=== PATIENT | female | born 1995 | race American Indian/Alaskan Native ===

== ENCOUNTER 2017-08-31 01:32 | Emergency (ER) | payer SELFPAY ==
[2017-08-31] MEDS ORDERED: ATIVAN IV ONE (01:57)
[2017-08-31 02:20] LABS: Hematocrit 32.9 % (30.3-42.9); Mean Corpuscular HGB Conc 31 % (30-34); Platelet Count 313 K/mm3 (140-440); Red Blood Count 4.89 M/mm3 (3.65-5.03); Red Cell Distribution Width 19.3 % (13.2-15.2)
[2017-08-31 02:30] LABS: Mean Corpuscular Hemoglobin 21 pg (28-32); Mean Corpuscular Volume 67 fl (79-97)
[2017-08-31] MEDS ORDERED: NACL 0.9% 1000 ML 1,000 ML ONE (02:36)
[2017-08-31 02:37] LABS: BUN/Creatinine Ratio 14; Blood Urea Nitrogen 7 mg/dL (7-17); Calcium 8.6 mg/dL (8.4-10.2); Hemolysis Index 1
[2017-08-31] MEDS ORDERED: KEPPRA 1,000 MG/NS 0.75% 100ML 1,000 MG/100 ML BAG IV ONE (03:24)
[2017-08-31] MEDS ORDERED: ATIVAN ONE (04:18)
--- NOTE | 2017-08-31 05:11 | Emergency Department Report ---
HPI - General Chief Complaint: Seizure Time Seen by Provider: 08/31/17 03:05 - HPI HPI: 22-year-old -[place] female with history of seizures had a seizure today prior to arrival. Boyfriend and josette seizure lasts 1-2 minutes. Patient was given medication on technical system analyst in the ambulance which stop her seizures. Patient denies any fever, neck pain, nausea, vomiting. She isn't currently not taking any medications for seizures. Does not have a primary care doctor. ED Past Medical Hx - Past Medical History Hx Hypertension: No Hx Congestive Heart Failure: No Hx Diabetes: No Hx Deep Vein Thrombosis: No Hx Renal Disease: No Hx Sickle Cell Disease: No Hx Seizures: No Hx Asthma: No Hx COPD: No Hx HIV: No Additional medical history: Vaginal delivery x 1, panic attack - Surgical History Additional Surgical History: 08-20-2014 - Social History Smoking Status: Never Smoker Substance Use Type: None - Medications Home Medications: Home Medications Medication Instructions Recorded Confirmed Last Taken Type Ferrous Sulfate [Feosol 325 MG tab] 325 mg PO BID #60 tablet 04/22/15 03/23/16 03/22/16 Rx Vit-Fe Fumar-FA [ 1 tab PO QDAY 03/23/16 03/23/16 03/22/16 History Vitamin] Valacyclovir HCl [Valtrex] 1,000 mg PO QDAY 03/23/16 03/23/16 03/22/16 History Valacyclovir HCl [valACYclovir] 1 tab PO QDAY 03/23/16 03/23/16 03/22/16 History levETIRAcetam [Keppra TAB] 250 mg PO BID #60 tablet 08/31/17 Unknown Rx ED Review of Systems ROS: Stated complaint: SEIZURE Other details as noted in HPI Comment: All other systems reviewed and negative Gastrointestinal: denies: nausea, vomiting Genitourinary: denies: urgency, dysuria Neurological: other (seizure) Physical Exam - Physical Exam Vital Signs: Vital Signs 08/31/17 08/31/17 08/31/17 01:39 01:40 01:41 Temperature Pulse Rate 103 H 102 H 100 H Respiratory 12 14 15 Rate Blood Pressure 102/55 102/55 O2 Sat by Pulse 100 100 100 Oximetry 08/31/17 08/31/17 08/31/17 01:43 01:45 01:46 Temperature 98.3 F Pulse Rate 98 H 95 H 95 H Respiratory 16 18 20 Rate Blood Pressure 102/55 102/55 103/55 O2 Sat by Pulse 100 100 98 Oximetry 08/31/17 08/31/17 08/31/17 01:47 01:49 01:51 Temperature Pulse Rate 97 H 99 H 91 H Respiratory 17 19 15 Rate Blood Pressure 102/55 102/55 102/55 O2 Sat by Pulse 100 100 100 Oximetry 08/31/17 08/31/17 08/31/17 02:18 02:55 02:57 Temperature Pulse Rate 102 H 84 Respiratory 20 11 L 12 Rate Blood Pressure 80/40 80/40 O2 Sat by Pulse 98 100 100 Oximetry 08/31/17 08/31/17 08/31/17 02:59 03:00 03:01 Temperature Pulse Rate 94 H 86 89 Respiratory 13 15 14 Rate Blood Pressure 80/40 95/58 95/58 O2 Sat by Pulse 100 100 100 Oximetry 08/31/17 08/31/17 08/31/17 03:03 03:05 03:07 Temperature Pulse Rate 96 H 103 H 99 H Respiratory 12 8 L 19 Rate Blood Pressure 95/58 95/58 95/58 O2 Sat by Pulse 100 100 100 Oximetry 08/31/17 08/31/17 08/31/17 03:09 03:11 03:13 Temperature Pulse Rate 100 H 89 90 Respiratory 13 14 13 Rate Blood Pressure 95/58 95/58 95/58 O2 Sat by Pulse 100 100 100 Oximetry 08/31/17 08/31/17 08/31/17 03:15 03:17 03:19 Temperature Pulse Rate 91 H 93 H 98 H Respiratory 13 13 12 Rate Blood Pressure 95/58 95/58 95/58 O2 Sat by Pulse 100 100 100 Oximetry 08/31/17 08/31/17 08/31/17 03:20 03:21 03:23 Temperature Pulse Rate 95 H 93 H 90 Respiratory 14 11 L 13 Rate Blood Pressure 98/58 98/58 98/58 O2 Sat by Pulse 100 100 100 Oximetry 08/31/17 08/31/17 08/31/17 03:25 03:27 03:29 Temperature Pulse Rate 88 83 85 Respiratory 14 15 14 Rate Blood Pressure 98/58 98/58 98/58 O2 Sat by Pulse 100 100 100 Oximetry 04/0708/31/17 08/31/17 03:31 03:33 03:35 Temperature Pulse Rate 90 86 86 Respiratory 14 13 14 Rate Blood Pressure 98/58 98/58 98/58 O2 Sat by Pulse 100 100 100 Oximetry 08/31/17 08/31/17 08/31/17 03:37 03:39 03:40 Temperature Pulse Rate 88 87 86 Respiratory 13 14 14 Rate Blood Pressure 98/58 98/58 90/48 O2 Sat by Pulse 100 100 100 Oximetry 08/31/17 08/31/17 08/31/17 03:41 03:43 03:45 Temperature Pulse Rate 85 86 88 Respiratory 14 14 14 Rate Blood Pressure 90/48 90/48 90/48 O2 Sat by Pulse 100 100 100 Oximetry 08/31/17 08/31/17 08/31/17 03:47 03:49 03:51 Temperature Pulse Rate 88 86 89 Respiratory 14 14 14 Rate Blood Pressure 90/48 90/48 90/48 O2 Sat by Pulse 100 100 100 Oximetry 08/31/17 08/31/17 08/31/17 03:53 03:55 03:57 Temperature Pulse Rate 91 H 87 86 Respiratory 13 14 13 Rate Blood Pressure 90/48 90/48 90/48 O2 Sat by Pulse 100 100 100 Oximetry 08/31/17 08/31/17 08/31/17 03:59 04:00 04:01 Temperature Pulse Rate 90 88 88 Respiratory 14 13 14 Rate Blood Pressure 90/48 90/48 90/48 O2 Sat by Pulse 100 100 100 Oximetry 08/31/17 08/31/17 08/31/17 04:03 04:05 04:07 Temperature Pulse Rate 110 H 113 H 105 H Respiratory 15 14 14 Rate Blood Pressure 90/48 90/48 90/48 O2 Sat by Pulse 100 100 100 Oximetry 08/31/17 08/31/17 08/31/17 04:09 04:11 04:13 Temperature Pulse Rate 98 H 90 92 H Respiratory 14 14 13 Rate Blood Pressure 90/48 90/48 90/48 O2 Sat by Pulse 100 100 100 Oximetry 08/31/17 08/31/17 08/31/17 04:15 04:17 04:19 Temperature Pulse Rate 84 97 H 82 Respiratory 14 13 14 Rate Blood Pressure 90/48 90/48 90/48 O2 Sat by Pulse 100 100 100 Oximetry 0408/31/17 08/31/17 04:20 04:21 04:23 Temperature Pulse Rate 86 86 88 Respiratory 13 13 13 Rate Blood Pressure 101/59 101/59 101/59 O2 Sat by Pulse 100 100 100 Oximetry Physical Exam: - Physical Exam Physical Exam: - General Limitations: No Limitations General appearance: alert, in no apparent distress. - Head Head exam: Present: atraumatic, normocephalic - Eye Eye exam: Present: normal appearance - ENT ENT exam: Present: mucous membranes moist - Neck Neck exam: Present: normal inspection - Respiratory Respiratory exam: Present: normal lung sounds bilaterally. Absent: respiratory distress - Cardiovascular Cardiovascular Exam: Present: normal rhythm, normal rate. Absent: systolic murmur, diastolic murmur, rubs, gallop - GI/Abdominal GI/Abdominal exam: Present: soft, normal bowel sounds - Extremities Exam Extremities exam: Present: normal inspection - Back Exam Back exam: Present: normal inspection - Neurological Exam Neurological exam: Present: alert, oriented X3 - Psychiatric Psychiatric exam: normal affect and mood - Skin Skin exam: Present: warm, dry, intact, normal color. Absent: rash ED Course Vital Signs 08/31/17 08/31/17 08/31/17 01:39 01:40 01:41 Temperature Pulse Rate 103 H 102 H 100 H Respiratory 12 14 15 Rate Blood Pressure 102/55 102/55 O2 Sat by Pulse 100 100 100 Oximetry 08/31/17 08/31/17 08/31/17 01:43 01:45 01:46 Temperature 98.3 F Pulse Rate 98 H 95 H 95 H Respiratory 16 18 20 Rate Blood Pressure 102/55 102/55 103/55 O2 Sat by Pulse 100 100 98 Oximetry 08/31/17 08/31/17 08/31/17 01:47 01:49 01:51 Temperature Pulse Rate 97 H 99 H 91 H Respiratory 17 19 15 Rate Blood Pressure 102/55 102/55 102/55 O2 Sat by Pulse 100 100 100 Oximetry 08/31/17 08/31/17 08/31/17 02:18 02:55 02:57 Temperature Pulse Rate 102 H 84 Respiratory 20 11 L 12 Rate Blood Pressure 80/40 80/40 O2 Sat by Pulse 98 100 100 Oximetry 08/31/17 08/31/17 08/31/17 02:59 03:00 03:01 Temperature Pulse Rate 94 H 86 89 Respiratory 13 15 14 Rate Blood Pressure 80/40 95/58 95/58 O2 Sat by Pulse 100 100 100 Oximetry 08/31/17 08/31/17 08/31/17 03:03 03:05 03:07 Temperature Pulse Rate 96 H 103 H 99 H Respiratory 12 8 L 19 Rate Blood Pressure 95/58 95/58 95/58 O2 Sat by Pulse 100 100 100 Oximetry 08/31/17 08/31/17 08/31/17 03:09 03:11 03:13 Temperature Pulse Rate 100 H 89 90 Respiratory 13 14 13 Rate Blood Pressure 95/58 95/58 95/58 O2 Sat by Pulse 100 100 100 Oximetry 08/31/17 08/31/17 08/31/17 03:15 03:17 03:19 Temperature Pulse Rate 91 H 93 H 98 H Respiratory 13 13 12 Rate Blood Pressure 95/58 95/58 95/58 O2 Sat by Pulse 100 100 100 Oximetry 08/31/17 08/31/17 08/31/17 03:20 03:21 03:23 Temperature Pulse Rate 95 H 93 H 90 Respiratory 14 11 L 13 Rate Blood Pressure 98/58 98/58 98/58 O2 Sat by Pulse 100 100 100 Oximetry 08/31/17 08/31/17 08/31/17 03:25 03:27 03:29 Temperature Pulse Rate 88 83 85 Respiratory 14 15 14 Rate Blood Pressure 98/58 98/58 98/58 O2 Sat by Pulse 100 100 100 Oximetry 08/31/17 08/31/17 08/31/17 03:31 03:33 03:35 Temperature Pulse Rate 90 86 86 Respiratory 14 13 14 Rate Blood Pressure 98/58 98/58 98/58 O2 Sat by Pulse 100 100 100 Oximetry 08/31/17 08/31/17 08/31/17 03:37 03:39 03:40 Temperature Pulse Rate 88 87 86 Respiratory 13 14 14 Rate Blood Pressure 98/58 98/58 90/48 O2 Sat by Pulse 100 100 100 Oximetry 08/31/17 08/31/17 08/31/17 03:41 03:43 03:45 Temperature Pulse Rate 85 86 88 Respiratory 14 14 14 Rate Blood Pressure 90/48 90/48 90/48 O2 Sat by Pulse 100 100 100 Oximetry 08/31/17 08/31/17 08/31/17 03:47 03:49 03:51 Temperature Pulse Rate 88 86 89 Respiratory 14 14 14 Rate Blood Pressure 90/48 90/48 90/48 O2 Sat by Pulse 100 100 100 Oximetry 08/31/17 08/31/17 08/31/17 03:53 03:55 03:57 Temperature Pulse Rate 91 H 87 86 Respiratory 13 14 13 Rate Blood Pressure 90/48 90/48 90/48 O2 Sat by Pulse 100 100 100 Oximetry 08/31/17 08/31/17 08/31/17 03:59 04:00 04:01 Temperature Pulse Rate 90 88 88 Respiratory 14 13 14 Rate Blood Pressure 90/48 90/48 90/48 O2 Sat by Pulse 100 100 100 Oximetry 08/31/17 08/31/17 08/31/17 04:03 04:05 04:07 Temperature Pulse Rate 110 H 113 H 105 H Respiratory 15 14 14 Rate Blood Pressure 90/48 90/48 90/48 O2 Sat by Pulse 100 100 100 Oximetry 08/31/17 08/31/17 08/31/17 04:09 04:11 04:13 Temperature Pulse Rate 98 H 90 92 H Respiratory 14 14 13 Rate Blood Pressure 90/48 90/48 90/48 O2 Sat by Pulse 100 100 100 Oximetry 08/31/17 08/31/17 08/31/17 04:15 04:17 04:19 Temperature Pulse Rate 84 97 H 82 Respiratory 14 13 14 Rate Blood Pressure 90/48 90/48 90/48 O2 Sat by Pulse 100 100 100 Oximetry 08/31/17 08/31/17 08/31/17 04:20 04:21 04:23 Temperature Pulse Rate 86 86 88 Respiratory 13 13 13 Rate Blood Pressure 101/59 101/59 101/59 O2 Sat by Pulse 100 100 100 Oximetry ED Medical Decision Making - Lab Data Result diagrams: 08/31/17 02:08 08/31/17 02:08 Critical care attestation.: If time is entered above; I have spent that time in minutes in the direct care of this critically ill patient, excluding procedure time. ED Disposition Clinical Impression: Seizure disorder Disposition: DC-01 TO HOME OR SELFCARE Is pt being admited?: No Does the pt Need Aspirin: No Condition: Stable Prescriptions: levETIRAcetam [Keppra TAB] 250 mg PO BID #60 tablet Referrals: NEHEMIAH BOYD MD [Primary Care Provider] - 3-5 Days
[2017-08-31 06:18] VITALS: BP 92/62
[2017-08-31] MEDS ORDERED: NACL 0.9% 1000 ML 1,000 ML IV ONE (07:16)
== END 2017-08-31 06:18 | disposition home or self-care (01) ==
LOC: ED 01:32
DX: G40.909 Epilepsy, unspecified, not intractable, without status epilepticus (principal)
CPT/HCPCS: 36415; 80048; 84703; 85027; 96361; 96374; 96375; 99284; J1953; J2060; J7030

== ENCOUNTER 2017-08-31 17:24 | Inpatient (IN) | payer OTHER ==
[2017-08-31] MEDS ORDERED: ATIVAN ONE (17:27)
[2017-08-31] MEDS ORDERED: D50W (25GM) Syringe IV ONE ×2 (17:29→17:47)
[2017-08-31] MEDS ORDERED: KEPPRA 1,000 MG/NS 0.75% 100ML 1,000 MG/100 ML BAG IV ONE ×2 (17:43→17:47)
[2017-08-31] MEDS ORDERED: ATIVAN IV ONE (18:18)
--- NOTE | 2017-08-31 20:32 | Cat Scan Report ---
FINAL REPORT PROCEDURE: CT HEAD/BRAIN WO CON TECHNIQUE: Computerized tomography of the head was performed without contrast material. HISTORY: Seizure COMPARISON: No prior studies are available for comparison. FINDINGS: Brain: Brain density appears normal. No evidence of intracranial hemorrhage. No parenchymal hemorrhage, mass lesions or mass effect are seen. No abnormal extraxial fluid collects or masses are seen. Ventricles: Ventricles are normal size and are midline. Bone Windows: No evidence of skull fracture. Paranasal sinuses: Visualized portions appear clear. Mastoid air cells: Clear IMPRESSION: Negative examination. If clinically indicated MRI of the brain could be obtained to evaluate for possible seizure focus.
[2017-08-31] MEDS ORDERED: ZOFRAN IV PRN (23:14)
[2017-08-31] MEDS ORDERED: TYLENOL PO PRN (23:14)
[2017-08-31] MEDS ORDERED: ATIVAN IV PRN (23:14)
[2017-08-31] MEDS ORDERED: SODIUM CHLORIDE FLUSH SYRINGE 10 ML IV PRN (23:14)
--- NOTE | 2017-08-31 23:17 | History and Physical Report ---
History of Present Illness Date of examination: 08/31/17 History of present illness: 22 -year-old lady with a history of panic attacks [facility] because she had a seizure at 2 PM this morning. She was seen in the emergency room and discharged. Boyfriend at bedside states she had another seizure on 3:30, they came back to the emergency room. He stated that the seizure activity lasted for 10-15 minutes and he is not able to communicate with her after the seizure, she also has foaming at the mouth. In the emergency room she had several of these seizures, generalized shaking of the body. She was given Ativan. During one of the seizures, the emergency room physician reports that he sternal rubbed her chest and she responded, "stop doing that". Boyfriend denies any stressors. History per boyfriend, patient barely speaks, drowsy after seizure PAST MEDICAL HISTORY: Panic attacks PAST SURGICAL HISTORY: None SOCIAL HISTORY: Denies alcohol, tobacco, drugs FAMILY HISTORY: Hypertension Medications and Allergies Allergies Allergy/AdvReac Type Severity Reaction Status Date / Time No Known Allergies Allergy Verified 03/23/16 04:46 Home Medications Medication Instructions Recorded Confirmed Last Taken Type Ferrous Sulfate [Feosol 325 MG tab] 325 mg PO BID #60 tablet 04/22/15 03/23/16 03/22/16 Rx Vit-Fe Fumar-FA [ 1 tab PO QDAY 03/23/16 03/23/16 03/22/16 History Vitamin] Valacyclovir HCl [Valtrex] 1,000 mg PO QDAY 03/23/16 03/23/16 03/22/16 History Valacyclovir HCl [valACYclovir] 1 tab PO QDAY 03/23/16 03/23/16 03/22/16 History levETIRAcetam [Keppra TAB] 250 mg PO BID #60 tablet 08/31/17 Unknown Rx Active Meds: Active Medications Acetaminophen (Tylenol) 650 mg PO Q4H PRN PRN Reason: Pain MILD(1-3)/Fever >100.5/NUNO Enoxaparin Sodium (Lovenox) 30 mg SUB-Q QDAY PRICE Sodium Chloride (Nacl 0.45% 1000 Ml) 1,000 mls @ 75 mls/hr IV DIRECT PRICE Lorazepam (Ativan) 1 mg IV Q4H PRN PRN Reason: Seizures Ondansetron HCl (Zofran) 4 mg IV Q8H PRN PRN Reason: Nausea And Vomiting Sodium Chloride (Sodium Chloride Flush Syringe 10 Ml) 10 ml IV BID PRICE Sodium Chloride (Sodium Chloride Flush Syringe 10 Ml) 10 ml IV PRN PRN PRN Reason: LINE FLUSH Exam - Physical Exam Narrative exam: Gen. appearance: Patient lying in bed, no apparent distress HEENT: Normocephalic, atraumatic, pupils equally round and reactive to light, extraocular movement intact, and no sclericterus,. No JVD or thyromegaly or nodule,neck supple, no carotid bruit ,mucous membranes moist, no exudate or erythema Heart: S1, S2, regular rate and rhythm Lungs: Clear to auscultation bilaterally, breathing comfortable Abdomen: Positive bowel sounds, nontender, nondistended, no organomegaly Extremity: No edema, cyanosis, clubbing Skin: No rash, nodules, warm, dry Neuro: lethargic but arousable - Constitutional Vitals: Temp Pulse Resp BP Pulse Ox 98.8 F 88 20 116/76 98 08/31/17 17:39 08/31/17 22:00 08/31/17 22:53 08/31/17 22:00 08/31/17 22:53 Results - Labs CBC & Chem 7: 09/01/17 08:04 09/01/17 08:04 - Imaging and Cardiology CT Scan - head: report reviewed Assessment and Plan Assessment Pseudoseizure versus seizure Panic attacks Plan admit to medicine Iv ativan as needed Obtain EEG, consult neurology, DVT prophylaxis
--- NOTE | 2017-08-31 23:18 | Emergency Department Report ---
ED Seizure HPI - General Chief Complaint: Seizure Stated Complaint: SEIZURES Time Seen by Provider: 08/31/17 18:05 Source: family, EMS Mode of arrival: Stretcher Limitations: Altered Mental Status - History of Present Illness Initial Comments: Patient is a 22-year-old female who is presenting with possible seizure. Patient was here last night and had laboratory studies done and was given a prescription for Keppra. Patient did not get this prescription filled had another episode of shaking at home and 911 was called. Patient received 5 of Versed and 1 Ativan for seizure-like activity. Patient is unable or unwilling to give me additional history. Description of Episode: loss of consciousness, tonic-clonic movement Seizure History: known seizure disorder (patient's family states she has not had a seizure in the last 4 years) Possible Precipitating Event: stress - Related Data Home Medications Medication Instructions Recorded Confirmed Last Taken Vit-Fe Fumar-FA [ 1 tab PO QDAY 03/23/16 03/23/16 03/22/16 Vitamin] Valacyclovir HCl [Valtrex] 1,000 mg PO QDAY 03/23/16 03/23/16 03/22/16 Valacyclovir HCl [valACYclovir] 1 tab PO QDAY 03/23/16 03/23/16 03/22/16 Previous Rx's Medication Instructions Recorded Last Taken Type Ferrous Sulfate [Feosol 325 MG tab] 325 mg PO BID #60 tablet 04/22/15 03/22/16 Rx levETIRAcetam [Keppra TAB] 250 mg PO BID #60 tablet 08/31/17 Unknown Rx Allergies Allergy/AdvReac Type Severity Reaction Status Date / Time No Known Allergies Allergy Verified 03/23/16 04:46 ED Review of Systems ROS: Stated complaint: SEIZURES Other details as noted in HPI Comment: All other systems reviewed and negative ED Past Medical Hx - Past Medical History Hx Hypertension: No Hx Congestive Heart Failure: No Hx Diabetes: No Hx Deep Vein Thrombosis: No Hx Renal Disease: No Hx Sickle Cell Disease: No Hx Seizures: No Hx Asthma: No Hx COPD: No Hx HIV: No Additional medical history: Vaginal delivery x 1, panic attack - Surgical History Additional Surgical History: 08-20-2014 - Social History Smoking Status: Never Smoker Substance Use Type: None - Medications Home Medications: Home Medications Medication Instructions Recorded Confirmed Last Taken Type Ferrous Sulfate [Feosol 325 MG tab] 325 mg PO BID #60 tablet 04/22/15 03/23/16 03/22/16 Rx Vit-Fe Fumar-FA [ 1 tab PO QDAY 03/23/16 03/23/16 03/22/16 History Vitamin] Valacyclovir HCl [Valtrex] 1,000 mg PO QDAY 03/23/16 03/23/16 03/22/16 History Valacyclovir HCl [valACYclovir] 1 tab PO QDAY 03/23/16 03/23/16 03/22/16 History levETIRAcetam [Keppra TAB] 250 mg PO BID #60 tablet 08/31/17 Unknown Rx ED Physical Exam - General Limitations: Altered Mental Status General appearance: alert, in no apparent distress - Head Head exam: Present: atraumatic, normocephalic - Eye Eye exam: Present: normal appearance - ENT ENT exam: Present: mucous membranes moist - Neck Neck exam: Present: normal inspection - Respiratory Respiratory exam: Present: normal lung sounds bilaterally. Absent: respiratory distress - Cardiovascular Cardiovascular Exam: Present: regular rate, normal rhythm. Absent: systolic murmur, diastolic murmur, rubs, gallop - GI/Abdominal GI/Abdominal exam: Present: soft, normal bowel sounds - Extremities Exam Extremities exam: Present: normal inspection - Back Exam Back exam: Present: normal inspection - Neurological Exam Neurological exam: Present: alert (on my exam patient is resting comfortably and appears to be asleep however she will whisper that she has a headache. Patient will shake her head yes or no to most questions. This is all done while she is keeping her eyes closed.), oriented X3 - Psychiatric Psychiatric exam: Present: normal affect, normal mood - Skin Skin exam: Present: warm, dry, intact, normal color. Absent: rash ED Course Vital Signs 08/31/17 08/31/17 08/31/17 17:30 17:39 17:47 Temperature 98.8 F Pulse Rate 101 H 104 H Respiratory 20 13 Rate Blood Pressure 105/73 113/64 O2 Sat by Pulse 100 100 100 Oximetry 08/31/17 08/31/17 08/31/17 18:01 18:15 18:31 Temperature Pulse Rate 103 H 88 84 Respiratory 11 L 17 21 Rate Blood Pressure 113/64 113/64 129/44 O2 Sat by Pulse 100 95 100 Oximetry 08/31/17 08/31/17 08/31/17 18:45 19:00 19:15 Temperature Pulse Rate 87 90 77 Respiratory 11 L 18 15 Rate Blood Pressure 94/58 111/73 111/73 O2 Sat by Pulse 100 100 100 Oximetry 08/31/17 08/31/17 08/31/17 19:30 19:48 20:00 Temperature Pulse Rate 81 78 81 Respiratory 13 12 14 Rate Blood Pressure 109/67 109/67 104/62 O2 Sat by Pulse 100 100 Oximetry 08/31/17 08/31/17 08/31/17 20:15 20:30 20:45 Temperature Pulse Rate 91 H 83 79 Respiratory 14 19 17 Rate Blood Pressure 104/62 104/59 104/59 O2 Sat by Pulse 100 100 100 Oximetry 08/31/17 08/31/17 08/31/17 21:00 21:15 21:30 Temperature Pulse Rate 76 82 85 Respiratory 14 17 17 Rate Blood Pressure 102/58 102/58 101/57 O2 Sat by Pulse 100 100 100 Oximetry 08/31/17 08/31/17 08/31/17 21:45 22:00 22:53 Temperature Pulse Rate 83 88 Respiratory 16 18 20 Rate Blood Pressure 101/57 116/76 O2 Sat by Pulse 100 100 98 Oximetry ED Medical Decision Making - Medical Decision Making He is a 22-year-old asthmatic female who presented with possible seizures. Additionally we believe that the patient was very tired and lethargic secondary to the benzodiazepine she received. Patient was loaded with another gram of Keppra during his physician should she not did not take any After leaving the hospital yesterday. Patient was noted to have another episode of seizures. I did see this patient having some drooling and was shaking back and forth within the bed. With brief started around the patient woke up grabbed my hand and asked me to stop start rubbing her. Patient seemed alert afterwards and aggravated that we had done a sternal rub. At this time I did discuss with family that this was not since suggestive of a real tonic-clonic seizure and that this may be pseudoseizures caused by stress. I asked the patient and her mother whether there is been any recent stressors. Her boyfriend stated no however the mother states that she received a phone call that a family member have been ill. This may be a precipitating factor to seizures that she was having. Patient continued to have periodic episodes of shaking where she is poorly responsive. Patient's family is adamant that she is having postictal phases only after I explained what a postictal phase was. Up until my explanation of a postictal phase of the patient and family initially stated that after her shaking she is responsive. Patient's does continue to have shaking episodes will not stand. At this point we will admit the patient so that she can have a neurology consult as well as a psychiatry consult as well. Patient be admitted to the hospitalist service under Dr. Saenz. Critical care attestation.: If time is entered above; I have spent that time in minutes in the direct care of this critically ill patient, excluding procedure time. ED Disposition Clinical Impression: Pseudoseizures Disposition: [id number] OP ADMIT IP TO THIS HOSP Is pt being admited?: Yes Does the pt Need Aspirin: No Condition: Stable
[2017-08-31] MEDS ORDERED: NACL 0.45% 1000 ML 1,000 ML IV SCH (23:45)
[2017-09-01] MEDS ORDERED: SODIUM CHLORIDE FLUSH SYRINGE 10 ML IV SCH (10:00)
[2017-09-01] MEDS ORDERED: LOVENOX SUB-Q SCH (10:00)
[2017-09-01] MEDS ORDERED: FEOSOL PO SCH (10:00)
[2017-09-01] MEDS ORDERED: KEPPRA PO SCH (10:00)
[2017-09-01 10:13] LABS: BUN/Creatinine Ratio 13; Blood Urea Nitrogen 5 mg/dL (7-17); Hemolysis Index 9
--- NOTE | 2017-09-01 10:26 | Consultation ---
History of Present Illness Consult date: 09/01/17 History of present illness: went over the history from the mother... really no good description or history does not meet criteria for dx of epilepsy therefore could be factitious but could be sleep apnea etc. or other parasomnia disorder will need sleep study at some point agree with w/u exam is normal spoke to mother Medications and Allergies Allergies Allergy/AdvReac Type Severity Reaction Status Date / Time No Known Allergies Allergy Verified 03/23/16 04:46 Home Medications Medication Instructions Recorded Confirmed Last Taken Type Ferrous Sulfate [Feosol 325 MG tab] 325 mg PO BID #60 tablet 04/22/15 03/23/16 03/22/16 Rx Vit-Fe Fumar-FA [ 1 tab PO QDAY 03/23/16 03/23/16 03/22/16 History Vitamin] Valacyclovir HCl [Valtrex] 1,000 mg PO QDAY 03/23/16 03/23/16 03/22/16 History Valacyclovir HCl [valACYclovir] 1 tab PO QDAY 03/23/16 03/23/16 03/22/16 History levETIRAcetam [Keppra TAB] 250 mg PO BID #60 tablet 08/31/17 Unknown Rx Active Meds: Active Medications Acetaminophen (Tylenol) 650 mg PO Q4H PRN PRN Reason: Pain MILD(1-3)/Fever >100.5/NUNO Enoxaparin Sodium (Lovenox) 30 mg SUB-Q QDAY PRICE Ferrous Sulfate (Feosol) 325 mg PO BID PRICE Sodium Chloride (Nacl 0.45% 1000 Ml) 1,000 mls @ 75 mls/hr IV DIRECT PRICE Levetiracetam (Keppra) 250 mg PO BID PRICE Lorazepam (Ativan) 1 mg IV Q4H PRN PRN Reason: Seizures Ondansetron HCl (Zofran) 4 mg IV Q8H PRN PRN Reason: Nausea And Vomiting Sodium Chloride (Sodium Chloride Flush Syringe 10 Ml) 10 ml IV BID PRICE Sodium Chloride (Sodium Chloride Flush Syringe 10 Ml) 10 ml IV PRN PRN PRN Reason: LINE FLUSH Physical Examination - Vital Signs Vital Signs: Vital Signs BP Pulse Ox 105/73 100 08/31/17 17:30 08/31/17 17:30 Results - Laboratory Findings CBC and BMP: 09/01/17 08:04 Abnormal Lab Findings: Abnormal Labs 09/01/17 08:04 Potassium 3.5 L BUN 5 L Creatinine 0.4 L
[2017-09-01 10:39] LABS: Basophils % (Auto) 0.4 % (0.0-1.8); Eosinophils # (Auto) 0.1 K/mm3 (0.0-0.4); Eosinophils % (Auto) 2.6 % (0.0-4.3); Hematocrit 31.9 % (30.3-42.9); Hemoglobin 9.7 gm/dl (10.1-14.3); Lymphocytes # (Auto) 1.3 K/mm3 (1.2-5.4); Lymphocytes % (Auto) 25.5 % (13.4-35.0); Mean Corpuscular HGB Conc 30 % (30-34); Monocytes # (Auto) 0.4 K/mm3 (0.0-0.8); Monocytes % (Auto) 7.6 % (0.0-7.3); Platelet Count 271 K/mm3 (140-440); Red Blood Count 4.69 M/mm3 (3.65-5.03)
[2017-09-01 10:56] LABS: Mean Corpuscular Hemoglobin 21 pg (28-32); Mean Corpuscular Volume 68 fl (79-97)
--- NOTE | 2017-09-01 11:17 | Progress Note ---
Assessment and Plan Pseudoseizure versus seizure Panic attacks Atypical chest pain Plan admit to medicine Iv ativan as needed Obtain EEG, consult neurology, DVT prophylaxis Brief history: Radiological test: Hospitalist Physical exam: GENERAL: well-developed and well-nourished lying on bed appeared to be in no discomfort. HEENT: Normocephalic. Atraumatic. No conjunctival congestion or icterus. Patient has moist mucous membranes. NECK: Supple. Trachea midline. CHEST/LUNGS: Clear to auscultated bilaterally, breathing nonlabored. No wheezes crackles or rhonchi. HEART/CARDIOVASCULAR: Regular in rate and rhythm. S1 and S2 positive. ABDOMEN: Abdomen is soft, nontender. Patient has normal bowel sounds. SKIN: There is no rash. Warm and dry. NEURO: No focal motor deficit. Follows command. MUSCULOSKELETAL: No joint effusion or tenderness. EXTRIMITY: No edema, no cyanosis or clubbing. PSYCH: Cooperative. Subjective Date of service: 09/01/17 Interval history: Patient seen and examined. Medical records and medication list reviewed. No acute event overnight noted by the RN. Patient complains of chest pain this morning. Patient is tolerating diet. Discussed plan of care at bedside with patient. Objective - Constitutional Vitals: Vital Signs - 12hr 08/31/17 08/31/17 08/31/17 23:30 23:45 23:49 Temperature Pulse Rate 91 H 88 104 H Respiratory 14 10 L 12 Rate Blood Pressure 102/68 102/68 102/68 O2 Sat by Pulse 100 100 100 Oximetry 09/01/17 09/01/17 09/01/17 00:01 00:15 00:42 Temperature 98.2 F Pulse Rate 77 87 85 Respiratory 15 20 16 Rate Blood Pressure 109/62 109/62 104/66 O2 Sat by Pulse 100 100 99 Oximetry 09/01/17 09/01/17 09/01/17 01:34 07:56 08:48 Temperature 98.6 F Pulse Rate 70 Respiratory 16 Rate Blood Pressure 99/50 O2 Sat by Pulse 95 99 99 Oximetry - Labs CBC & Chem 7: 09/01/17 08:04 09/01/17 08:04 Labs: Abnormal lab results 09/01/17 09/01/17 Range/Units 08:04 08:04 Hgb 9.7 L (10.1-14.3) gm/dl MCV 68 L (79-97) fl MCH 21 L (28-32) pg RDW 20.0 H (13.2-15.2) % [place] % (Auto) 7.6 H (0.0-7.3) % Potassium 3.5 L (3.6-5.0) mmol/L BUN 5 L (7-17) mg/dL Creatinine 0.4 L (0.7-1.2) mg/dL
[2017-09-01 16:05] VITALS: BP 96/52
[2017-09-02] MEDS ORDERED: LOVENOX SUB-Q SCH (10:00)
--- NOTE | 2017-09-03 01:31 | Discharge Summary ---
Providers - Providers Date of Admission: 08/31/17 23:14 Date of discharge: 09/01/17 Attending physician: TERRY RAINEY 08/31/17 23:17 Consult to Physician [CONS] Routine Comment: Consulting Provider: FLAQUITA NARVAEZ Physician Instructions: Reason For Exam: suzan Primary care physician: NEHEMIAH BOYD Hospitalization Condition: Stable Disposition: DC-07 LEFT AGAINST MED ADVICE Exam - Constitutional Vitals: Temp Pulse Resp BP Pulse Ox 98.6 F 80 16 96/52 99 09/01/17 15:42 09/01/17 15:42 09/01/17 15:42 09/01/17 15:42 09/01/17 15:42 Plan Follow up with: NEHEMIAH BOYD MD [Primary Care Provider] - 7 Days
== END 2017-09-01 19:39 | disposition left against medical advice (07) | DRG 101 ==
LOC: ED 17:24 → 3A 23:14
PROVIDERS: ADMIT Internal Medicine; ATTEND Internal Medicine
DX: R56.9 Unspecified convulsions (principal); R07.89 Other chest pain; F41.0 Panic disorder [episodic paroxysmal anxiety]; Z82.49 Family history of ischemic heart disease and other diseases of the circulatory system
CPT/HCPCS: 36415; 70450; 80048; 84484; 85025; 93005; 93010; 96374; 96375; J1650; J1953; J2060

== ENCOUNTER 2018-01-26 20:48 | Emergency (ER) | payer SELFPAY ==
[2018-01-26] MEDS ORDERED: NACL 0.9% 1000 ML 1,000 ML IV ONE (20:54)
--- NOTE | 2018-01-26 20:54 | Emergency Department Report ---
ED Seizure HPI - General Chief Complaint: Seizure Stated Complaint: SEIZURE Time Seen by Provider: 01/26/18 20:54 Source: family, EMS Mode of arrival: Stretcher Limitations: Altered Mental Status - History of Present Illness MD Complaint: seizure -: Sudden, This evening Description of Episode: loss of consciousness, tonic-clonic movement, post- event confusion Witnessed:: Yes Trauma: No Seizure History: known seizure disorder Place: home Possible Precipitating Event: none Associated Symptoms: denies other symptoms Treatments Prior to Arrival: benzodiazepines - Related Data Home Medications Medication Instructions Recorded Confirmed Last Taken Vit-Fe Fumar-FA [ 1 tab PO QDAY 03/23/16 03/23/16 03/22/16 Vitamin] Valacyclovir HCl [Valtrex] 1,000 mg PO QDAY 03/23/16 03/23/16 03/22/16 Valacyclovir HCl [valACYclovir] 1 tab PO QDAY 03/23/16 03/23/16 03/22/16 Previous Rx's Medication Instructions Recorded Last Taken Type Ferrous Sulfate [Feosol 325 MG tab] 325 mg PO BID #60 tablet 04/22/15 03/22/16 Rx levETIRAcetam [Keppra TAB] 250 mg PO BID #60 tablet 08/31/17 Unknown Rx Docusate Sodium [Colace] 100 mg PO BID #60 capsule 01/27/18 Unknown Rx Ferrous Sulfate [Iron] 325 mg PO BID #60 tablet 01/27/18 Unknown Rx levETIRAcetam [Keppra] 750 mg PO BID #90 tablet 01/27/18 Unknown Rx Allergies Allergy/AdvReac Type Severity Reaction Status Date / Time No Known Allergies Allergy Verified 03/23/16 04:46 ED Review of Systems ROS: Stated complaint: SEIZURE Other details as noted in HPI Comment: Unobtainable due to pts medical conditions (Patient is post ictal and does not answer questions.) ED Past Medical Hx - Past Medical History Hx Hypertension: No Hx Congestive Heart Failure: No Hx Diabetes: No Hx Deep Vein Thrombosis: No Hx Renal Disease: No Hx Sickle Cell Disease: No Hx Seizures: Yes (2014 before and after ) Hx Asthma: No Hx COPD: No Hx HIV: No Additional medical history: Vaginal delivery x 1, panic attack - Surgical History Additional Surgical History: 08-20-2014 - Social History Smoking Status: Never Smoker - Medications Home Medications: Home Medications Medication Instructions Recorded Confirmed Last Taken Type Ferrous Sulfate [Feosol 325 MG tab] 325 mg PO BID #60 tablet 04/22/15 03/23/16 03/22/16 Rx Vit-Fe Fumar-FA [ 1 tab PO QDAY 03/23/16 03/23/16 03/22/16 History Vitamin] Valacyclovir HCl [Valtrex] 1,000 mg PO QDAY 03/23/16 03/23/16 03/22/16 History Valacyclovir HCl [valACYclovir] 1 tab PO QDAY 03/23/16 03/23/16 03/22/16 History levETIRAcetam [Keppra TAB] 250 mg PO BID #60 tablet 08/31/17 Unknown Rx Docusate Sodium [Colace] 100 mg PO BID #60 capsule 01/27/18 Unknown Rx Ferrous Sulfate [Iron] 325 mg PO BID #60 tablet 01/27/18 Unknown Rx levETIRAcetam [Keppra] 750 mg PO BID #90 tablet 01/27/18 Unknown Rx ED Physical Exam - General Limitations: Altered Mental Status (Post ictal) General appearance: alert, postictal - Head Head exam: Present: atraumatic, normocephalic, normal inspection - Eye Eye exam: Present: normal appearance, PERRL, EOMI Pupils: Present: normal accommodation - ENT ENT exam: Present: normal exam, normal orophraynx, mucous membranes moist - Neck Neck exam: Present: normal inspection, full ROM. Absent: tenderness - Respiratory Respiratory exam: Present: normal lung sounds bilaterally. Absent: respiratory distress, wheezes, rales, rhonchi, stridor - Cardiovascular Cardiovascular Exam: Present: regular rate, normal rhythm, normal heart sounds - GI/Abdominal GI/Abdominal exam: Present: soft, normal bowel sounds. Absent: distended, tenderness, guarding, rebound, rigid - Extremities Exam Extremities exam: Present: normal inspection, full ROM, normal capillary refill - Back Exam Back exam: Present: normal inspection, full ROM. Absent: tenderness, CVA tenderness (R), CVA tenderness (L) - Neurological Exam Neurological exam: Present: alert, altered (Post ictal. GCS = 14.) - Psychiatric Psychiatric exam: Present: normal affect - Skin Skin exam: Present: warm, dry, intact, normal color. Absent: rash ED Course Vital Signs 01/26/18 01/26/18 01/26/18 21:02 21:15 21:30 Pulse Rate 115 H 107 H 100 H Respiratory 23 26 H 24 Rate Blood Pressure 135/76 99/50 O2 Sat by Pulse 90 Oximetry 01/26/18 01/26/18 01/26/18 21:45 22:00 22:37 Pulse Rate 85 80 Respiratory 14 15 18 Rate Blood Pressure 99/50 93/58 O2 Sat by Pulse 99 100 Oximetry - Reevaluation(s) Reevaluation #1: 01/27/18 03:47 Patient is awake, alert and she is able to answer all my questions. She has no complaints at this time. She wanted to be discharged home. ED Medical Decision Making - Lab Data Result diagrams: 01/26/18 21:10 01/26/18 21:10 - EKG Data -: EKG Interpreted by Me EKG shows normal: sinus rhythm Rate: tachycardia (105) - EKG Data When compared to previous EKG there are: previous EKG unavailable Interpretation: nonspecific ST-T wave mame, other (Multiple artifacts. No STEMI.) - Medical Decision Making Seizure disorder. Critical care attestation.: If time is entered above; I have spent that time in minutes in the direct care of this critically ill patient, excluding procedure time. ED Disposition Clinical Impression: Seizure Iron deficiency anemia Qualifiers: Iron deficiency anemia type: unspecified iron deficiency Qualified Code(s): D50.9 - Iron deficiency anemia, unspecified Disposition: DC-01 TO HOME OR SELFCARE Is pt being admited?: No Does the pt Need Aspirin: No Condition: Stable Instructions: Women and Epilepsy (ED), Epilepsy (ED) Additional Instructions: Please follow up with the Neurologist Dr Farrell on Saturday. Return to the ED if your condition worsens. Prescriptions: Docusate Sodium [Colace] 100 mg PO BID #60 capsule Ferrous Sulfate [Iron] 325 mg PO BID #60 tablet levETIRAcetam [Keppra] 750 mg PO BID #90 tablet Referrals: PRIMARY CARE, [Primary Care Provider] - 3-5 Days SHARMILA FARRELL MD [Staff] - 3-5 Days Time of Disposition: 03:46
[2018-01-26] MEDS ORDERED: KEPPRA 1,000 MG/NS 0.75% 100ML 1,000 MG/100 ML BAG IV ONE (20:56)
[2018-01-26 21:40] LABS: Mean Corpuscular HGB Conc 30 % (30-34); Platelet Count 360 K/mm3 (140-440); Red Blood Count 4.74 M/mm3 (3.65-5.03); Red Cell Distribution Width 18.4 % (13.2-15.2)
[2018-01-26 21:43] LABS: Alanine Aminotransferase 14 units/L (7-56); Albumin 4.2 g/dL (3.9-5); BUN/Creatinine Ratio 13; Blood Urea Nitrogen 8 mg/dL (7-17); Calcium 9.5 mg/dL (8.4-10.2); Hemolysis Index 38
[2018-01-26 21:47] LABS: Hematocrit 30.3 % (30.3-42.9)
[2018-01-26 21:48] LABS: Mean Corpuscular Hemoglobin 19 pg (28-32); Mean Corpuscular Volume 64 fl (79-97)
[2018-01-26 23:12] LABS: Amphetamine Screen,Urine PRESUMPTIVE NEGATIVE; Benzodiazepines Screen,Urine PRESUMPTIVE NEGATIVE; Bilirubin,Urine NEG (Negative); Blood,Urine NEG (Negative); Cannabinoid Screen,Urine PRESUMPTIVE NEGATIVE; Cocaine Screen,Urine PRESUMPTIVE NEGATIVE; Color,Urine Yellow (Yellow); Methadone Screen,Urine PRESUMPTIVE NEGATIVE; Mucus,Urine 3+ /HPF; Opiate Screen,Urine PRESUMPTIVE NEGATIVE; Protein,Urine <15 mg/dL mg/dL (Negative)
[2018-01-26 23:16] LABS: HCG Qualitative,Urine Negative (Negative)
[2018-01-26 23:22] LABS: Band Neutrophils # (Manual) 0.1 K/mm3; Basophils % (Manual) 0 % (0.0-1.8); Total Cells Counted 100
[2018-01-26 23:23] LABS: Anisocytosis 1+; Burr Cells Few; Hypochromasia 1+
[2018-01-26 23:24] LABS: Platelet Estimate Consistent w Auto; Tear Drop Cells Few
[2018-01-26] MEDS ORDERED: FEOSOL PO ONE (23:44)
[2018-01-27] MEDS ORDERED: NACL 0.9% 1000 ML 1,000 ML IV ONE (00:39)
[2018-01-27 04:23] VITALS: BP 103/68
== END 2018-01-27 04:21 | disposition home or self-care (01) ==
LOC: ED 20:48
DX: R56.9 Unspecified convulsions (principal); D50.9 Iron deficiency anemia, unspecified
CPT/HCPCS: 36415; 80053; 80307; 81001; 81025; 82962; 85007; 85025; 93005; 93010; 96365; 99284; G0480; J1953; J7030; 80320

== ENCOUNTER 2018-03-03 22:12 | Emergency (ER) | payer SELFPAY ==
--- NOTE | 2018-03-03 23:40 | Emergency Department Report ---
HPI - General Chief Complaint: Seizure Time Seen by Provider: 03/03/18 23:04 - HPI HPI: 22-year-old female presents to the emergency department via EMS with complaint of multiple seizures today. The patient does have a seizure history but has been out of her Keppra for the past week. She does not have a consistent primary care physician or neurologist. She says that she had 3 seizures prior to arrival and the patient had one seizure as she arrived to the emergency department. She was given some magnesium as the patient had previously told EMS that she may be . After she came to from her postictal state, patient says that she missed her last period and suspects that she is but has not taken any test. She denies any recent seizures prior to today. ED Past Medical Hx - Past Medical History Previous Medical History?: Yes Hx Hypertension: No Hx Congestive Heart Failure: No Hx Diabetes: No Hx Deep Vein Thrombosis: No Hx Renal Disease: No Hx Sickle Cell Disease: No Hx Seizures: Yes (2014 before and after ) Hx Asthma: No Hx COPD: No Hx HIV: No Additional medical history: Vaginal delivery x 1, panic attack - Surgical History Past Surgical History?: Yes Additional Surgical History: 08-20-2014 - Social History Smoking Status: Never Smoker Substance Use Type: None - Medications Home Medications: Home Medications Medication Instructions Recorded Confirmed Last Taken Type Valacyclovir HCl [Valtrex] 1,000 mg PO QDAY 03/23/16 03/23/16 03/22/16 History Valacyclovir HCl [valACYclovir] 1 tab PO QDAY 03/23/16 03/23/16 03/22/16 History levETIRAcetam [Keppra TAB] 250 mg PO BID #60 tablet 08/31/17 Unknown Rx Docusate Sodium [Colace] 100 mg PO BID #60 capsule 01/27/18 Unknown Rx Ferrous Sulfate [Iron] 325 mg PO BID #60 tablet 01/27/18 Unknown Rx Ferrous Sulfate [Feosol 325 MG tab] 325 mg PO BID #60 tablet 03/04/18 Unknown Rx Vit-Fe Fumar-FA [ 1 tab PO QDAY #30 tablet 03/04/18 Unknown Rx Vitamin] levETIRAcetam [Keppra] 500 mg PO BID #60 tablet 03/04/18 Unknown Rx ED Review of Systems ROS: Stated complaint: SEIZURE Other details as noted in HPI Comment: All other systems reviewed and negative Constitutional: denies: chills, fever Eyes: denies: eye pain, eye discharge, vision change ENT: denies: ear pain, throat pain Respiratory: denies: cough, shortness of breath, wheezing Cardiovascular: denies: chest pain, palpitations Genitourinary: denies: urgency, dysuria, discharge Musculoskeletal: denies: back pain, joint swelling, arthralgia Skin: denies: rash, lesions Neurological: other (seizures). denies: headache Physical Exam - Physical Exam Physical Exam: GENERAL: Patient appears sleepy and/or postictal. HENT: Normocephalic. Atraumatic. Patient has moist mucous membranes. EYES: Extraocular motions are intact. Pupils equal reactive to light bilaterally. NECK: Supple. Trachea is midline. CHEST/LUNGS: Clear to auscultation. There is no respiratory distress noted. HEART/CARDIOVASCULAR: Regular. There is no tachycardia. There is no murmur. ABDOMEN: Abdomen is soft, nontender. Patient has normal bowel sounds. There is no abdominal distention. SKIN: Skin is warm and dry. NEURO: The patient appears sleepy and/or is postictal. She is arousable to her name but is slow to respond and talks quietly. Follows some commands. MUSCULOSKELETAL: There is no tenderness or deformity. There is no limitation range of motion. There is no evidence of acute injury. ED Course - Reevaluation(s) Reevaluation #1: Patient was reevaluated multiple times and she has progressively become more awake and alert. Patient is AAO 3, following all commands, answering questions appropriately. There are no signs of any focal, motor or sensory deficits. 03/04/18 04:58 ED Medical Decision Making - Lab Data Result diagrams: 03/03/18 23:35 03/03/18 23:35 - EKG Data -: EKG Interpreted by Me EKG shows normal: sinus rhythm, axis, intervals, QRS complexes, ST-T waves Rate: normal - EKG Data When compared to previous EKG there are: previous EKG unavailable Interpretation: normal EKG - Radiology Data Radiology results: report reviewed Obstetric ultrasound shows a live intrauterine at 6 weeks and 2 days. The heart rate is 97 bpm which is below normal so a follow-up study is recommended. Small subchorionic hemorrhage. Complex cyst in the left ovary that is 2.1 cm in diameter that is most likely representing a corpus luteum cyst. Minimal free fluid in the pelvis. - Medical Decision Making This patient presents with the complaint of some seizures prior to arrival and then a seizure upon arrival to the emergency department. At first the patient didn't appear postictal but shortly became more awake and alert. Patient was reevaluated multiple times over multiple hours and has remained awake and alert , stable, throughout her ED course. On examination there is no focal, motor or sensory deficits and her cranial nerves are intact. The patient had a suspicion that she was and she was correct. She had a beta hCG of about 27,000. An ultrasound was done to evaluate the fetus and she was found to have a live intrauterine at 6 weeks and 2 days but the heart tone is 97 bpm which is below normal. The patient was made aware of this and understands the importance of following up with an [facility] in the next few days. The patient did not have any further seizure-like activity after presentation. Since the patient does have some seizure history, and there are no focal deficits, and she has remained awake and alert for over 6 hours in the emergency department, I did not feel that CT imaging of the head was necessary at this time. The patient and I had a long discussion regarding antiepileptic treatments. The patient is usually on Keppra 500 mg twice daily but has been out of her medication for about a week or so. The patient is now . The patient is aware that taking Keppra while has a small risk of having her fetus develop congenital abnormalities or defect the growth rate. She also understands that not taking her seizure medications could lead to further seizures which could lead to problems for her including the fact that she could fall down, hit her head, or she could have a prolonged seizure. The patient has decided that despite the risks of taking Keppra while , she will go back on her seizure medications. I have given her referrals for both [facility] services as well as a neurologist. I have given her a refill of her Keppra. She has been given vitamins and a refill of her iron supplements. She has been instructed to return to the emergency department with any further seizure-like activity, worsening of her symptoms, or with any acute distress. All of her questions have been answered. Vital signs are stable throughout her ED course. - Differential Diagnosis , seizures, pseudoseizures, dysrhythmia, preeclampsia, eclampsia Critical Care Time: No Critical care attestation.: If time is entered above; I have spent that time in minutes in the direct care of this critically ill patient, excluding procedure time. ED Disposition Clinical Impression: Seizure disorder Qualifiers: Weeks of gestation: less than 8 weeks Qualified Code(s): Z3A.01 - Less than 8 weeks gestation of Iron (Fe) deficiency anemia Qualifiers: Iron deficiency anemia type: unspecified iron deficiency Qualified Code(s): D50.9 - Iron deficiency anemia, unspecified Disposition: DC- TO HOME OR SELFCARE Is pt being admited?: No Condition: Stable Instructions: (ED), Recurrent Seizures Adult (ED) Additional Instructions: Please follow up with an [facility] in the next few days. I will give him multiple referrals for [facility] services. I am also giving her a referral for a local neurologist, Dr. Marrero, to follow-up regarding your seizure history. Return to the emergency Department with any worsening of your symptoms or any acute distress. Prescriptions: Ferrous Sulfate [Feosol 325 MG tab] 325 mg PO BID #60 tablet levETIRAcetam [Keppra] 500 mg PO BID #60 tablet Vit-Fe Fumar-FA [ Vitamin] 1 tab PO QDAY #30 tablet Referrals: PRIMARY CAREMD [Primary Care Provider] - 2-3 Days FARHEEN MARRERO MD [Staff Physician] - 2-3 Days [facility] [Provider Group] - 2-3 Days [facility] [Provider Group] - 2-3 Days [facility] [Provider Group] - 2-3 Days Time of Disposition: 04:25
[2018-03-03 23:58] LABS: Hematocrit 29.3 % (30.3-42.9); Hemoglobin 8.8 gm/dl (10.1-14.3); Mean Corpuscular HGB Conc 30 % (30-34); Platelet Count 451 K/mm3 (140-440); Red Blood Count 4.59 M/mm3 (3.65-5.03); Red Cell Distribution Width 18.5 % (13.2-15.2)
[2018-03-04 00:02] LABS: Mean Corpuscular Hemoglobin 19 pg (28-32); Mean Corpuscular Volume 64 fl (79-97)
[2018-03-04 00:19] LABS: Alanine Aminotransferase 13 units/L (7-56); Albumin 4.1 g/dL (3.9-5); BUN/Creatinine Ratio 24; Blood Urea Nitrogen 12 mg/dL (7-17); Calcium 9.1 mg/dL (8.4-10.2); Hemolysis Index 1
[2018-03-04] MEDS ORDERED: K-DUR PO ONE (02:11)
[2018-03-04 02:15] LABS: Basophils % (Manual) 0 % (0.0-1.8); Total Cells Counted 100
[2018-03-04 02:16] LABS: Acanthocytes 1+; Anisocytosis 1+; Hypochromasia 1+; Platelet Estimate Consistent w Auto; Poikilocytosis 1+; Tear Drop Cells Few
--- NOTE | 2018-03-04 04:14 | Ultrasound Report ---
FINAL REPORT EXAM: US OB < = 14 WEEKS FETUS HISTORY: abd pain, preg TECHNIQUE: Transabdominal imaging was obtained of the pelvis with Doppler interrogation of the uterus. FINDINGS: The uterus measures 9 cm x 5.4 cm x 7.1 cm. Within the uterus is a well-formed gestational sac which contains a yolk sac and pole. The crown-rump length of the pole is 3.9 mm corresponding to a 6 week 2 day IUP. The heart rate is 97 BPM which is slightly diminished. There is a hypoechoic area adjacent to the gestational sac measuring 2.4 cm x 0.7 cm x 0.9 cm compatible with subchorionic bleed. There is minimal free fluid the pelvis. The right ovary is normal size contour and echotexture measuring 2 cm x 1.5 cm x 2 cm. The left ovary measures 3.5 cm x 2.3 cm x 2.7 cm. Within the left ovary is a complex cyst measuring 2.1 cm in diameter. IMPRESSION: Single viable IUP, 6 weeks 2 days. The heart rate is 97 BPM which is below normal. Follow-up study recommended. Small subchorionic hemorrhage. Complex cyst in left ovary measuring 2.1 cm in diameter most likely representing a corpus luteum cyst. Minimal free fluid the pelvis.
[2018-03-04] MEDS: KCL 10MEQ/100ML 10 MEQ/100 ML BAG IV SCH (04:18)
[2018-03-04 04:23] VITALS: BP 138/82
--- NOTE | 2018-03-04 06:35 | Ultrasound Report ---
FINAL REPORT EXAM: US OB TRANSVAGINAL HISTORY: abd pain, preg TECHNIQUE: Transvaginal imaging was obtained the pelvis including Doppler interrogation of the uterus. FINDINGS: The uterus is anteverted measuring 9 cm x 5.4 cm x 7.1 cm. Within the uterus is a well-formed gestational sac which contains a yolk sac and pole. The crown-rump length is 3.9 mm corresponding to a 6 week 2 day IUP. The heart rate is diminished at 97 BPM. Adjacent to the gestational sac is a hypoechoic area measuring 2.4 cm x 0.7 cm x 0.9 cm compatible with subchorionic hemorrhage. There is minimal free fluid. The right ovary is normal size contour and echotexture measuring 2 cm x 1.5 cm x 2 cm. The left ovary measures 3.5 cm x 2.3 cm x 2.7 cm. There is a complex cyst in the left ovary measures 2.1 cm in diameter most likely representing corpus luteum cyst. IMPRESSION: Single viable IUP, 6 weeks 2 days. The heart rate is 97 BPM which is below the lower range of normal. Follow-up study recommended. Small subchorionic hemorrhage. Probable corpus luteum cyst left ovary. Minimal free fluid.
== END 2018-03-04 04:55 | disposition home or self-care (01) ==
LOC: ED 22:12
DX: O99.351 Diseases of the nervous system complicating pregnancy, first trimester (principal); O99.011 Anemia complicating pregnancy, first trimester; D50.9 Iron deficiency anemia, unspecified; Z3A.01 Less than 8 weeks gestation of pregnancy
CPT/HCPCS: 36415; 76801; 76817; 80053; 84484; 84702; 84703; 85007; 85025; 93005; 93010

== ENCOUNTER 2018-07-05 04:01 | Outpatient (CLI) | payer MEDICAID, OTHER ==
[2018-07-05 04:46] VITALS: BP 110/61
--- NOTE | 2018-07-06 06:54 | Ultrasound Report ---
FINAL REPORT EXAM: US OB LIMITED HISTORY: leaking fluids COMPARISONS: 03/04/2018 FINDINGS: Limited transabdominal 2nd trimester ultrasound Single living intrauterine in cephalic presentation with recorded cardiac activity of 157 b eats per minute. Amniotic fluid volume is subjectively normal. Amniotic fluid index is approximately 14 cm. The cervix is not well visualized. IMPRESSION: Single living intrauterine with subjectively normal amniotic fluid volume and amniotic flui d index of approximately 14 cm.
== END 2018-07-05 07:05 | disposition home or self-care (01) ==
LOC: TRG 04:01
PROVIDERS: ATTEND Obstetrics & Gynecology
DX: O47.02 False labor before 37 completed weeks of gestation, second trimester (principal); Z3A.24 24 weeks gestation of pregnancy
CPT/HCPCS: 76815

== ENCOUNTER 2018-07-16 07:20 | Outpatient (CLI) | payer SELFPAY ==
[2018-07-16] MEDS ORDERED: LACTATED RINGERS 500 ML IV ONE (07:52)
[2018-07-16 08:35] VITALS: BP 118/75
[2018-07-16 09:30] LABS: Bilirubin,Urine NEG (Negative); Blood,Urine NEG (Negative); Color,Urine Straw (Yellow); Protein,Urine <15 mg/dL mg/dL (Negative); Urobilinogen,Urine < 2.0 mg/dL (<2.0)
[2018-07-16 09:35] LABS: Amphetamine Screen,Urine PRESUMPTIVE NEGATIVE; Benzodiazepines Screen,Urine PRESUMPTIVE NEGATIVE; Cannabinoid Screen,Urine PRESUMPTIVE NEGATIVE; Cocaine Screen,Urine PRESUMPTIVE NEGATIVE; Methadone Screen,Urine PRESUMPTIVE NEGATIVE; Opiate Screen,Urine PRESUMPTIVE NEGATIVE
== END 2018-07-16 09:30 | disposition still patient (30) ==
LOC: TRG 07:20
PROVIDERS: ATTEND Obstetrics & Gynecology
DX: O26.892 Other specified pregnancy related conditions, second trimester (principal); R07.9 Chest pain, unspecified; R51 Headache; O47.02 False labor before 37 completed weeks of gestation, second trimester; Z3A.25 25 weeks gestation of pregnancy
CPT/HCPCS: 59025; 80307; 81001; 93005; 93010; J7120; 96360

== ENCOUNTER 2018-07-16 09:25 | Emergency (ER) | payer MEDICAID, OTHER ==
[2018-07-16] MEDS ORDERED: ASPIRIN PO ONE (09:42)
[2018-07-16 10:11] LABS: Basophils % (Auto) 0.2 % (0.0-1.8); Eosinophils # (Auto) 0.1 K/mm3 (0.0-0.4); Eosinophils % (Auto) 1.1 % (0.0-4.3); Lymphocytes % (Auto) 18.7 % (13.4-35.0); Mean Corpuscular HGB Conc 30 % (30-34); Monocytes # (Auto) 0.7 K/mm3 (0.0-0.8); Monocytes % (Auto) 6.1 % (0.0-7.3); Platelet Count 359 K/mm3 (140-440); Red Blood Count 4.51 M/mm3 (3.65-5.03); Red Cell Distribution Width 18.5 % (13.2-15.2)
[2018-07-16 10:14] LABS: Hematocrit 29.1 % (30.3-42.9); Hemoglobin 8.6 gm/dl (10.1-14.3); Mean Corpuscular Volume 64 fl (79-97)
[2018-07-16 10:33] LABS: BUN/Creatinine Ratio 7; Blood Urea Nitrogen 2 mg/dL (7-17); Calcium 8.7 mg/dL (8.4-10.2); Hemolysis Index 5
[2018-07-16] MEDS ORDERED: TYLENOL PO ONE (10:42)
[2018-07-16] MEDS ORDERED: NACL 0.9% 1000 ML 1,000 ML IV ONE (10:42)
[2018-07-16] MEDS ORDERED: KEPPRA 1,000 MG/NS 0.75% 100ML 1,000 MG/100 ML BAG IV ONE (11:53)
--- NOTE | 2018-07-16 12:57 | Emergency Department Report ---
ED General Adult HPI - General Chief complaint: Chest Pain Stated complaint: CHEST/HEAD PAIN Time Seen by Provider: 07/16/18 10:36 Source: patient Mode of arrival: Wheelchair Limitations: No Limitations - History of Present Illness Initial comments: Patient is a 22-year-old Female who is 25 weeks who has not yet received any care has been sent over from labor and delivery secondary to seizure and chest pain. Patient states last seizure was approximately 2 months ago. Patient has been noncompliant with her Keppra since this . Patient was told that she could start her Keppra but she is not had a mitigated fail. Patient states chest discomfort is a soreness is 8 out of 10 in severity and is present only after the seizure. The patient states she's has some soreness to the chest when touching and moving. The patient denies any shortness of breath cough congestion. Severity scale (0 -10): 5 - Related Data Home Medications Medication Instructions Recorded Confirmed Last Taken Valacyclovir HCl [Valtrex] 1,000 mg PO QDAY 03/23/16 03/23/16 03/22/16 Valacyclovir HCl [valACYclovir] 1 tab PO QDAY 03/23/16 03/23/16 03/22/16 Previous Rx's Medication Instructions Recorded Last Taken Type levETIRAcetam [Keppra TAB] 250 mg PO BID #60 tablet 08/31/17 Unknown Rx Docusate Sodium [Colace] 100 mg PO BID #60 capsule 01/27/18 Unknown Rx Ferrous Sulfate [Iron] 325 mg PO BID #60 tablet 01/27/18 Unknown Rx Ferrous Sulfate [Feosol 325 MG tab] 325 mg PO BID #60 tablet 03/04/18 Unknown Rx Vit-Fe Fumar-FA [ 1 tab PO QDAY #30 tablet 03/04/18 Unknown Rx Vitamin] levETIRAcetam [Keppra] 500 mg PO BID #60 tablet 03/04/18 Unknown Rx levETIRAcetam [Keppra] 500 mg PO BID #60 tablet 07/16/18 Unknown Rx Allergies Allergy/AdvReac Type Severity Reaction Status Date / Time No Known Allergies Allergy Verified 03/23/16 04:46 ED Review of Systems ROS: Stated complaint: CHEST/HEAD PAIN Other details as noted in HPI Comment: All other systems reviewed and negative ED Past Medical Hx - Past Medical History Hx Hypertension: No Hx Congestive Heart Failure: No Hx Diabetes: No Hx Deep Vein Thrombosis: No Hx Renal Disease: No Hx Sickle Cell Disease: No Hx Seizures: Yes Hx Asthma: No Hx COPD: No Hx HIV: No Additional medical history: Vaginal delivery x 1, panic attack - Surgical History Past Surgical History?: Yes Additional Surgical History: 08-20-2014 - Social History Smoking Status: Never Smoker Substance Use Type: None - Medications Home Medications: Home Medications Medication Instructions Recorded Confirmed Last Taken Type Valacyclovir HCl [Valtrex] 1,000 mg PO QDAY 03/23/16 03/23/16 03/22/16 History Valacyclovir HCl [valACYclovir] 1 tab PO QDAY 03/23/16 03/23/16 03/22/16 History levETIRAcetam [Keppra TAB] 250 mg PO BID #60 tablet 08/31/17 Unknown Rx Docusate Sodium [Colace] 100 mg PO BID #60 capsule 01/27/18 Unknown Rx Ferrous Sulfate [Iron] 325 mg PO BID #60 tablet 01/27/18 Unknown Rx Ferrous Sulfate [Feosol 325 MG tab] 325 mg PO BID #60 tablet 03/04/18 Unknown Rx Vit-Fe Fumar-FA [ 1 tab PO QDAY #30 tablet 03/04/18 Unknown Rx Vitamin] levETIRAcetam [Keppra] 500 mg PO BID #60 tablet 03/04/18 Unknown Rx levETIRAcetam [Keppra] 500 mg PO BID #60 tablet 07/16/18 Unknown Rx ED Physical Exam - General Limitations: No Limitations General appearance: alert, in no apparent distress - Head Head exam: Present: atraumatic, normocephalic - Eye Eye exam: Present: normal appearance - ENT ENT exam: Present: mucous membranes moist - Neck Neck exam: Present: normal inspection - Respiratory Respiratory exam: Present: normal lung sounds bilaterally, chest wall tenderness. Absent: respiratory distress, wheezes, rales, rhonchi - Cardiovascular Cardiovascular Exam: Present: regular rate, normal rhythm, normal heart sounds. Absent: systolic murmur, diastolic murmur, rubs, gallop - GI/Abdominal GI/Abdominal exam: Present: soft, distended (gravid uterus), normal bowel sounds. Absent: tenderness, guarding, rebound - Extremities Exam Extremities exam: Present: normal inspection - Back Exam Back exam: Present: normal inspection - Neurological Exam Neurological exam: Present: alert, oriented X3 - Psychiatric Psychiatric exam: Present: normal affect, normal mood - Skin Skin exam: Present: warm, dry, intact, normal color. Absent: rash ED Course Vital Signs 07/16/18 07/16/18 07/16/18 09:40 11:01 11:19 Temperature 98.1 F Pulse Rate 105 H Respiratory 20 18 18 Rate Blood Pressure 107/59 O2 Sat by Pulse 100 99 Oximetry 07/16/18 12:01 Temperature Pulse Rate Respiratory 18 Rate Blood Pressure O2 Sat by Pulse Oximetry ED Medical Decision Making - Lab Data Result diagrams: 07/16/18 09:46 07/16/18 09:57 - EKG Data -: EKG Interpreted by Me EKG shows normal: sinus rhythm, axis, intervals, QRS complexes, ST-T waves Rate: normal - EKG Data Interpretation: normal EKG - Medical Decision Making Did speak with Dr. Fortunato Tracy with [facility] at 1152 and he stated that the patient definitely needs to follow-up with him for care he also states that the patient can restart Keppra. I did Rx card is been given to the pat ient may be related to be able to better afford this medication. Critical care attestation.: If time is entered above; I have spent that time in minutes in the direct care of this critically ill patient, excluding procedure time. ED Disposition Clinical Impression: Seizure, Chest wall pain Qualifiers: Weeks of gestation: 25 weeks Qualified Code(s): Z3A.25 - 25 weeks gestation of Disposition: - TO HOME OR SELFCARE Is pt being admited?: No Does the pt Need Aspirin: No Condition: Stable Instructions: Chest Pain (ED) Referrals: AUSTIN TRACY MD [Staff Physician] - 3-5 Days [place] TARIQ GOODEN MD [Primary Care Provider] - 3-5 Days Time of Disposition: 12:57
[2018-07-16 13:30] VITALS: BP 106/55
== END 2018-07-16 13:31 | disposition home or self-care (01) ==
LOC: ED 09:25
DX: O99.352 Diseases of the nervous system complicating pregnancy, second trimester (principal); G40.909 Epilepsy, unspecified, not intractable, without status epilepticus; O99.342 Other mental disorders complicating pregnancy, second trimester; F41.0 Panic disorder [episodic paroxysmal anxiety]; Z3A.25 25 weeks gestation of pregnancy
CPT/HCPCS: 36415; 80048; 84484; 84702; 85025; 96365; 96366; 99284; J1953; J7030

== ENCOUNTER 2018-10-25 20:41 | Inpatient (IN) | payer BC, OTHER ==
[2018-10-25] MEDS ORDERED: KEPPRA 1,000 MG/NS 0.75% 100ML 1,000 MG/100 ML BAG IV ONE (20:47)
[2018-10-25] MEDS ORDERED: NACL 0.9% 1000 ML 1,000 ML IV ONE (20:48)
[2018-10-25 21:12] LABS: Amphetamine Screen,Urine PRESUMPTIVE NEGATIVE; Benzodiazepines Screen,Urine PRESUMPTIVE NEGATIVE; Cannabinoid Screen,Urine PRESUMPTIVE NEGATIVE; Cocaine Screen,Urine PRESUMPTIVE NEGATIVE; Methadone Screen,Urine PRESUMPTIVE NEGATIVE; Opiate Screen,Urine PRESUMPTIVE NEGATIVE
[2018-10-25] MEDS ORDERED: ATIVAN IV ONE (21:13)
--- NOTE | 2018-10-25 21:14 | Emergency Department Report ---
ED Seizure HPI - General Chief Complaint: Seizure Stated Complaint: UNRESPONSIVE Time Seen by Provider: 10/25/18 20:46 Source: EMS, old records reviewed Mode of arrival: Stretcher Limitations: Altered Mental Status - History of Present Illness Initial Comments: 23-year-old female with a past medical of seizures status post vaginal delivery delivery 4 days ago presents to the hospital with alteration in mental status. Her boyfriend found patient unresponsive sitting upright on a couch. He reports the patient was lethargic and only responsible to painful stimuli. Accu-Chek was in the 80s. Upon arrival patient is tearful, responsive to painful stimuli, unable to speak or follow commands. No urinary incontinence reported patient apparently is on a seizure medication. Boyfriend at the scene did not know which medication. Per medical record review patient has been on Keppra in the past. - Related Data Home Medications Medication Instructions Recorded Confirmed Last Taken Valacyclovir HCl [Valtrex] 1,000 mg PO QDAY 03/23/16 03/23/16 03/22/16 Valacyclovir HCl [valACYclovir] 1 tab PO QDAY 03/23/16 03/23/16 03/22/16 Previous Rx's Medication Instructions Recorded Last Taken Type levETIRAcetam [Keppra TAB] 250 mg PO BID #60 tablet 08/31/17 Unknown Rx Docusate Sodium [Colace] 100 mg PO BID #60 capsule 01/27/18 Unknown Rx Ferrous Sulfate [Iron 325 MG] 325 mg PO BID #60 tablet 01/27/18 Unknown Rx Ferrous Sulfate [Feosol 325 MG tab] 325 mg PO BID #60 tablet 03/04/18 Unknown Rx Vit-Fe Fumar-FA [ 1 tab PO QDAY #30 tablet 03/04/18 Unknown Rx Vitamin] levETIRAcetam [Keppra] 500 mg PO BID #60 tablet 03/04/18 Unknown Rx levETIRAcetam [Keppra] 500 mg PO BID #60 tablet 07/16/18 Unknown Rx Allergies Allergy/AdvReac Type Severity Reaction Status Date / Time No Known Allergies Allergy Verified 03/23/16 04:46 ED Review of Systems ROS: Stated complaint: UNRESPONSIVE Other details as noted in HPI Comment: Unobtainable due to pts medical conditions ED Past Medical Hx - Past Medical History Previous Medical History?: Yes Hx Hypertension: No Hx Congestive Heart Failure: No Hx Diabetes: No Hx Deep Vein Thrombosis: No Hx Renal Disease: No Hx Sickle Cell Disease: No Hx Seizures: Yes Hx Asthma: No Hx COPD: No Hx HIV: No Additional medical history: Vaginal delivery x 1, panic attack - Surgical History Past Surgical History?: Yes Additional Surgical History: 08-20-2014 - Social History Smoking Status: Unknown if ever smoked - Medications Home Medications: Home Medications Medication Instructions Recorded Confirmed Last Taken Type Valacyclovir HCl [Valtrex] 1,000 mg PO QDAY 03/23/16 03/23/16 03/22/16 History Valacyclovir HCl [valACYclovir] 1 tab PO QDAY 03/23/16 03/23/16 03/22/16 History levETIRAcetam [Keppra TAB] 250 mg PO BID #60 tablet 08/31/17 Unknown Rx Docusate Sodium [Colace] 100 mg PO BID #60 capsule 01/27/18 Unknown Rx Ferrous Sulfate [Iron 325 MG] 325 mg PO BID #60 tablet 01/27/18 Unknown Rx Ferrous Sulfate [Feosol 325 MG tab] 325 mg PO BID #60 tablet 03/04/18 Unknown Rx Vit-Fe Fumar-FA [ 1 tab PO QDAY #30 tablet 03/04/18 Unknown Rx Vitamin] levETIRAcetam [Keppra] 500 mg PO BID #60 tablet 03/04/18 Unknown Rx levETIRAcetam [Keppra] 500 mg PO BID #60 tablet 07/16/18 Unknown Rx ED Physical Exam - General Limitations: Altered Mental Status - Other Other exam information: General: Unresponsive Head exam: Atraumatic, normocephalic Eyes exam: Normal appearance, pupils equal reactive to light ENT: Moist mucous membranes, no blood from the oropharynx Neck exam: Normal inspection, full range of motion, no meningismus nontender Respiratory exam: Clear to auscultation bilateral, no wheezes, rales, crackles Cardiovascular: Normal rate and rhythm, normal heart sounds Abdomen: Soft, nondistended, and nontender, with normal bowel sounds, no reboun d, or guarding Extremity: Full range of motion normal inspection no deformity Back: Normal Inspection, full range of motion, no tenderness Neurologic: Lethargic, withdraws to painful stimuli, no facial droop. Psychiatric: Unresponsive, tearful Skin: Warm, dry, intact ED Course Vital Signs 10/25/18 10/25/18 10/25/18 20:51 20:55 23:08 Temperature 99.6 F Pulse Rate 82 102 H 59 L Respiratory 19 14 Rate Blood Pressure 118/80 Blood Pressure 122/86 100/51 [Left] O2 Sat by Pulse 100 100 Oximetry 10/25/18 10/26/18 10/26/18 23:11 00:48 02:22 Temperature Pulse Rate 53 L 67 Respiratory 15 14 12 Rate Blood Pressure Blood Pressure 106/75 94/61 [Left] O2 Sat by Pulse 98 100 100 Oximetry 10/26/18 04:10 Temperature Pulse Rate 74 Respiratory 13 Rate Blood Pressure Blood Pressure 106/45 [Left] O2 Sat by Pulse 100 Oximetry - Reevaluation(s) Reevaluation #1: 10/25/18 21:14 keppra infusing, pt had a sz, ativan ordered. Reevaluation #2: 10/26/18 04:[address] angio report resulted - Consultations Consultation #1: 10/26/18 02:10 case was discussed with Dr Barbara singh several times. Recommend admission for further neurology evaluation and MRI due to inconsistent neurologic exam. ED Medical Decision Making - Lab Data Result diagrams: 10/25/18 21:01 10/25/18 21:01 Lab Results 10/25/18 10/25/18 10/25/18 Range/Units 20:50 21:01 21:01 WBC 8.7 (4.5-11.0) K/mm3 RBC 5.44 H (3.65-5.03) M/mm3 Hgb 9.9 L (10.1-14.3) gm/dl Hct 33.7 (30.3-42.9) % MCV 62 L (79-97) fl MCH 18 L (28-32) pg MCHC 30 (30-34) % RDW 21.3 H (13.2-15.2) % Plt Count 540 H (140-440) K/mm3 Add Manual Diff Complete Total Counted 100 Seg Neuts % (Manual) 58.0 (40.0-70.0) % Band Neutrophils % 0 % Lymphocytes % (Manual) 35.0 (13.4-35.0) % Reactive Lymphs % (Man) 0 % Monocytes % (Manual) 3.0 (0.0-7.3) % Eosinophils % (Manual) 3.0 (0.0-4.3) % Basophils % (Manual) 1.0 (0.0-1.8) % Metamyelocytes % 0 % Myelocytes % 0 % Promyelocytes % 0 % Blast Cells % 0 % Nucleated RBC % Not Reportable Seg Neutrophils # Man 5.0 (1.8-7.7) K/mm3 Band Neutrophils # 0.0 K/mm3 Lymphocytes # (Manual) 3.0 (1.2-5.4) K/mm3 Abs React Lymphs (Man) 0.0 K/mm3 Monocytes # (Manual) 0.3 (0.0-0.8) K/mm3 Eosinophils # (Manual) 0.3 (0.0-0.4) K/mm3 Basophils # (Manual) 0.1 (0.0-0.1) K/mm3 Metamyelocytes # 0.0 K/mm3 Myelocytes # 0.0 K/mm3 Promyelocytes # 0.0 K/mm3 Blast Cells # 0.0 K/mm3 WBC Morphology Not Reportable Hypersegmented Neuts Not Reportable Hyposegmented Neuts Not Reportable Hypogranular Neuts Not Reportable Smudge Cells Not Reportable Toxic Granulation Not Reportable Toxic Vacuolation Not Reportable Dohle Bodies Not Reportable Pelger-Huet Anomaly Not Reportable Karri Rods Not Reportable Platelet Estimate Not Reportable Clumped Platelets Not Reportable Plt Clumps, EDTA Not Reportable Large Platelets Not Reportable Giant Platelets Not Reportable Platelet Satelliting Not Reportable Plt Morphology Comment Not Reportable RBC Morphology Not Reportable Dimorphic RBCs Not Reportable Polychromasia Not Reportable Hypochromasia 2+ Poikilocytosis Not Reportable Anisocytosis 1+ Microcytosis 1+ Macrocytosis Not Reportable Spherocytes Not Reportable Pappenheimer Bodies Not Reportable Sickle Cells Not Reportable Target Cells Not Reportable Tear Drop Cells Not Reportable Ovalocytes Not Reportable Helmet Cells Not Reportable Vickers-Stroud Bodies Not Reportable Simms Rings Not Reportable [place] Cells Not Reportable Bite Cells Not Reportable Crenated Cell Not Reportable Elliptocytes Not Reportable Acanthocytes (Spur) Not Reportable Rouleaux Not Reportable Hemoglobin C Crystals Not Reportable Schistocytes Not Reportable Malaria parasites Not Reportable Reyes Bodies Not Reportable Hem Pathologist Commnt No VBG pH (7.320-7.420) Sodium 142 (137-145) mmol/L Potassium 4.4 (3.6-5.0) mmol/L Chloride 103.2 (98-107) mmol/L Carbon Dioxide 22 (22-30) mmol/L Anion Gap 21 mmol/L BUN 8 (7-17) mg/dL Creatinine 0.5 L (0.7-1.2) mg/dL Estimated GFR > 60 ml/min BUN/Creatinine Ratio 16 % Glucose 81 (65-100) mg/dL Lactic Acid (0.7-2.0) mmol/L Calcium 9.5 (8.4-10.2) mg/dL Magnesium 2.20 (1.7-2.3) mg/dL Total Creatine Kinase (30-135) units/L Urine Color (Yellow) Urine Turbidity (Clear) Urine pH (5.0-7.0) Ur Specific [place] (1.003-1.030) Urine Protein (Negative) mg/dL Urine Glucose (UA) (Negative) mg/dL Urine Ketones (Negative) mg/dL Urine Blood (Negative) Urine Nitrite (Negative) Urine Bilirubin (Negative) Urine Urobilinogen (<2.0) mg/dL Ur Leukocyte Esterase (Negative) Urine WBC (Auto) (0.0-6.0) /HPF Urine RBC (Auto) (0.0-6.0) /HPF U Epithel Cells (Auto) (0-13.0) /HPF Urine Mucus /HPF Urine Opiates Screen Presumptive negative Urine Methadone Screen Presumptive negative Ur Barbiturates Screen Presumptive negative Ur Phencyclidine Scrn Presumptive negative Ur Amphetamines Screen Presumptive negative U Benzodiazepines Scrn Presumptive negative Urine Cocaine Screen Presumptive negative U Marijuana (THC) Screen Presumptive negative Drugs of Abuse Note Disclamer 10/25/18 10/25/18 10/25/18 Range/Units 21:01 21:01 21:01 WBC (4.5-11.0) K/mm3 RBC (3.65-5.03) M/mm3 Hgb (10.1-14.3) gm/dl Hct (30.3-42.9) % MCV (79-97) fl MCH (28-32) pg MCHC (30-34) % RDW (13.2-15.2) % Plt Count (140-440) K/mm3 Add Manual Diff Total Counted Seg Neuts % (Manual) (40.0-70.0) % Band Neutrophils % % Lymphocytes % (Manual) (13.4-35.0) % Reactive Lymphs % (Man) % Monocytes % (Manual) (0.0-7.3) % Eosinophils % (Manual) (0.0-4.3) % Basophils % (Manual) (0.0-1.8) % Metamyelocytes % % Myelocytes % % Promyelocytes % % Blast Cells % % Nucleated RBC % Seg Neutrophils # Man (1.8-7.7) K/mm3 Band Neutrophils # K/mm3 Lymphocytes # (Manual) (1.2-5.4) K/mm3 Abs React Lymphs (Man) K/mm3 Monocytes # (Manual) (0.0-0.8) K/mm3 Eosinophils # (Manual) (0.0-0.4) K/mm3 Basophils # (Manual) (0.0-0.1) K/mm3 Metamyelocytes # K/mm3 Myelocytes # K/mm3 Promyelocytes # K/mm3 Blast Cells # K/mm3 WBC Morphology Hypersegmented Neuts Hyposegmented Neuts Hypogranular Neuts Smudge Cells Toxic Granulation Toxic Vacuolation Dohle Bodies Pelger-Huet Anomaly Karri Rods Platelet Estimate Clumped Platelets Plt Clumps, EDTA Large Platelets Giant Platelets Platelet Satelliting Plt Morphology Comment RBC Morphology Dimorphic RBCs Polychromasia Hypochromasia Poikilocytosis Anisocytosis Microcytosis Macrocytosis Spherocytes Pappenheimer Bodies Sickle Cells Target Cells Tear Drop Cells Ovalocytes Helmet Cells Vickers-Stroud Bodies Simms Rings [place] Cells Bite Cells Crenated Cell Elliptocytes Acanthocytes (Spur) Rouleaux Hemoglobin C Crystals Schistocytes Malaria parasites Reyes Bodies Hem Pathologist Commnt VBG pH 7.428 H (7.320-7.420) Sodium (137-145) mmol/L Potassium (3.6-5.0) mmol/L Chloride (98-107) mmol/L Carbon Dioxide (22-30) mmol/L Anion Gap mmol/L BUN (7-17) mg/dL Creatinine (0.7-1.2) mg/dL Estimated GFR ml/min BUN/Creatinine Ratio % Glucose (65-100) mg/dL Lactic Acid 1.30 (0.7-2.0) mmol/L Calcium (8.4-10.2) mg/dL Magnesium (1.7-2.3) mg/dL Total Creatine Kinase 52 (30-135) units/L Urine Color (Yellow) Urine Turbidity (Clear) Urine pH (5.0-7.0) Ur Specific Braxton (1.003-1.030) Urine Protein (Negative) mg/dL Urine Glucose (UA) (Negative) mg/dL Urine Ketones (Negative) mg/dL Urine Blood (Negative) Urine Nitrite (Negative) Urine Bilirubin (Negative) Urine Urobilinogen (<2.0) mg/dL Ur Leukocyte Esterase (Negative) Urine WBC (Auto) (0.0-6.0) /HPF Urine RBC (Auto) (0.0-6.0) /HPF U Epithel Cells (Auto) (0-13.0) /HPF Urine Mucus /HPF Urine Opiates Screen Urine Methadone Screen Ur Barbiturates Screen Ur Phencyclidine Scrn Ur Amphetamines Screen U Benzodiazepines Scrn Urine Cocaine Screen U Marijuana (THC) Screen Drugs of Abuse Note 10/25/18 Range/Units 21:02 WBC (4.5-11.0) K/mm3 RBC (3.65-5.03) M/mm3 Hgb (10.1-14.3) gm/dl Hct (30.3-42.9) % MCV (79-97) fl MCH (28-32) pg MCHC (30-34) % RDW (13.2-15.2) % Plt Count (140-440) K/mm3 Add Manual Diff Total Counted Seg Neuts % (Manual) (40.0-70.0) % Band Neutrophils % % Lymphocytes % (Manual) (13.4-35.0) % Reactive Lymphs % (Man) % Monocytes % (Manual) (0.0-7.3) % Eosinophils % (Manual) (0.0-4.3) % Basophils % (Manual) (0.0-1.8) % Metamyelocytes % % Myelocytes % % Promyelocytes % % Blast Cells % % Nucleated RBC % Seg Neutrophils # Man (1.8-7.7) K/mm3 Band Neutrophils # K/mm3 Lymphocytes # (Manual) (1.2-5.4) K/mm3 Abs React Lymphs (Man) K/mm3 Monocytes # (Manual) (0.0-0.8) K/mm3 Eosinophils # (Manual) (0.0-0.4) K/mm3 Basophils # (Manual) (0.0-0.1) K/mm3 Metamyelocytes # K/mm3 Myelocytes # K/mm3 Promyelocytes # K/mm3 Blast Cells # K/mm3 WBC Morphology Hypersegmented Neuts Hyposegmented Neuts Hypogranular Neuts Smudge Cells Toxic Granulation Toxic Vacuolation Dohle Bodies Pelger-Huet Anomaly Karri Rods Platelet Estimate Clumped Platelets Plt Clumps, EDTA Large Platelets Giant Platelets Platelet Satelliting Plt Morphology Comment RBC Morphology Dimorphic RBCs Polychromasia Hypochromasia Poikilocytosis Anisocytosis Microcytosis Macrocytosis Spherocytes Pappenheimer Bodies Sickle Cells Target Cells Tear Drop Cells Ovalocytes Helmet Cells Vickers-Stroud Bodies Simms Rings [place] Cells Bite Cells Crenated Cell Elliptocytes Acanthocytes (Spur) Rouleaux Hemoglobin C Crystals Schistocytes Malaria parasites Reyes Bodies Hem Pathologist Commnt VBG pH (7.320-7.420) Sodium (137-145) mmol/L Potassium (3.6-5.0) mmol/L Chloride (98-107) mmol/L Carbon Dioxide (22-30) mmol/L Anion Gap mmol/L BUN (7-17) mg/dL Creatinine (0.7-1.2) mg/dL Estimated GFR ml/min BUN/Creatinine Ratio % Glucose (65-100) mg/dL Lactic Acid (0.7-2.0) mmol/L Calcium (8.4-10.2) mg/dL Magnesium (1.7-2.3) mg/dL Total Creatine Kinase (30-135) units/L Urine Color Yellow (Yellow) Urine Turbidity Clear (Clear) Urine pH 6.0 (5.0-7.0) Ur Specific Braxton 1.016 (1.003-1.030) Urine Protein <15 mg/dl (Negative) mg/dL Urine Glucose (UA) Neg (Negative) mg/dL Urine Ketones Neg (Negative) mg/dL Urine Blood Mod (Negative) Urine Nitrite Neg (Negative) Urine Bilirubin Neg (Negative) Urine Urobilinogen < 2.0 (<2.0) mg/dL Ur Leukocyte Esterase Mod (Negative) Urine WBC (Auto) 5.0 (0.0-6.0) /HPF Urine RBC (Auto) 2.0 (0.0-6.0) /HPF U Epithel Cells (Auto) < 1.0 (0-13.0) /HPF Urine Mucus Few /HPF Urine Opiates Screen Urine Methadone Screen Ur Barbiturates Screen Ur Phencyclidine Scrn Ur Amphetamines Screen U Benzodiazepines Scrn Urine Cocaine Screen U Marijuana (THC) Screen Drugs of Abuse Note - Radiology Data Radiology results: report reviewed PROCEDURE: CT HEAD/BRAIN WO CON TECHNIQUE: Computerized tomography of the head was performed without contrast material. CT DOSE LENGTH PRODUCT: 1048.3 mGycm HISTORY: ams ? sz COMPARISONS: None . FINDINGS: Skull and scalp: Normal . Paranasal sinuses: Normal . Ventricles and subarachnoid spaces: Normal . Cerebrum: No evidence of hemorrhage, acute infarction or mass . Cerebellum and brainstem: No evidence of hemorrhage, acute infarction or mass . Vasculature: Normal . IMPRESSION: Normal Examination . PROCEDURE: CT ANGIO HEAD TECHNIQUE: Computerized tomographic angiography of the head was performed without the IV injection of iodinated nonionic contrast including image processing. The image data was postprocessed using 2-dimensional multiplanar reformatted (MPR) and 3-dimensional (MIP and/or volume rendered) techniques. HISTORY: post seizures, hx of sz COMPARISONS: 10/25/[address] . FINDINGS: The anterior and posterior communicating arteries are normal in caliber. Well o pacified anterior and middle cerebral arteries. Branch vessels within the anterior and middle cerebral arterial distribution are well opacified and normal in caliber. Normal caliber basilar artery. Posterior cerebral arteries and their major branches are well opacified and normal in caliber. IMPRESSION: No intracranial stenosis/large vessel occlusion.The [place] is intact. PROCEDURE: CT ANGIO NECK HISTORY: post seizure, hx of sz FINDINGS: Contrast-enhanced CT angiography of the neck was performed following the intravenous administration of iodinated contrast. The pulmonary apices appear clear. The examination is very limited by poor bolus timing. Contrast is primarily in the veins rather than in the arterial system. The right and left common carotid internal carotid external carotid and vertebral arteries appear widely patent. No hemodynamically significant stenosis is seen in the cervical arterial vasculature. No fracture is seen in the cervical spine. There is a normal epiglottis. The larynx is within normal limits. IMPRESSION: Limited by suboptimal bolus timing The cervical arterial vasculature appears widely patent - Medical Decision Making pt will be admitted as per neurology mentation. Please refer to Dr. Jimenez's note. Medical record review it appears that in 2018 patient was admitted for suspected seizure versus pseudoseizure. It appears that patient did have seizure activity in the ED with postictal state and inconsistent postseizure neurologic examination. Patient will be admitted as per neurology recommendation. She was loaded with Keppra 1000 mg IV in the ED and did receive 1 dose of Ativan for a active seizure in the ED. - Differential Diagnosis seizure, medication noncompliance, cephalopathy, ICH, eclampsia Critical Care Time: No Critical care attestation.: If time is entered above; I have spent that time in minutes in the direct care of this critically ill patient, excluding procedure time. ED Disposition Clinical Impression: Seizures, Status post vaginal delivery Disposition: -09 OP ADMIT IP TO THIS HOSP Is pt being admited?: Yes Condition: Stable Time of Disposition: 04:29 (DR Galeas /informed)
[2018-10-25] MEDS ORDERED: ATIVAN ONE (21:17)
[2018-10-25 21:27] LABS: Mean Corpuscular HGB Conc 30 % (30-34); Platelet Count 540 K/mm3 (140-440); Red Blood Count 5.44 M/mm3 (3.65-5.03)
[2018-10-25 21:28] LABS: Hematocrit 33.7 % (30.3-42.9); Hemoglobin 9.9 gm/dl (10.1-14.3)
[2018-10-25 21:29] LABS: Mean Corpuscular Volume 62 fl (79-97); Red Cell Distribution Width 21.3 % (13.2-15.2)
[2018-10-25 21:42] LABS: BUN/Creatinine Ratio 16; Blood Urea Nitrogen 8 mg/dL (7-17); Calcium 9.5 mg/dL (8.4-10.2); Hemolysis Index 25
[2018-10-25 22:08] LABS: Anisocytosis 1+; Hypochromasia 2+; Total Cells Counted 100
--- NOTE | 2018-10-25 22:54 | Cat Scan Report ---
PROCEDURE: CT HEAD/BRAIN WO CON TECHNIQUE: Computerized tomography of the head was performed without contrast material. CT DOSE LENGTH PRODUCT: 1048.3 mGycm HISTORY: ams ? sz COMPARISONS: None . FINDINGS: Skull and scalp: Normal . Paranasal sinuses: Normal . Ventricles and subarachnoid spaces: Normal . Cerebrum: No evidence of hemorrhage, acute infarction or mass . Cerebellum and brainstem: No evidence of hemorrhage, acute infarction or mass . Vasculature: Normal . IMPRESSION: Normal Examination . This document is electronically signed by Winston Lewis MD., October 25 2018 11:52:30 PM ET
[2018-10-25 23:47] LABS: Bilirubin,Urine NEG (Negative); Blood,Urine MOD (Negative); Color,Urine Yellow (Yellow); Mucus,Urine FEW /HPF; Protein,Urine <15 mg/dL mg/dL (Negative); Urobilinogen,Urine < 2.0 mg/dL (<2.0)
[2018-10-25] MEDS ORDERED: TORADOL IV ONE (23:47)
--- NOTE | 2018-10-26 00:58 | Emergency Department Report ---
ED Seizure HPI - General Chief Complaint: Seizure Stated Complaint: UNRESPONSIVE Time Seen by Provider: 10/25/18 20:46 Source: EMS, old records reviewed Mode of arrival: Stretcher Limitations: Altered Mental Status - History of Present Illness Initial Comments: [facility] Consult Services Impression: Edward is not responsive, effort dependent exam, no tpa, delivered two days ago. Patent LKN was 1 pm, so outside of window. She has had seizures, on Keppra 1000 mg, ok to breast feed, lamictal also ok during . She ahd witnessed tonic clonic seizures. [id number] : 1995 Differential Diagnosis: 1. Cardioembolic stroke 2. Small vessel disease/lacune 3. Thromboembolic, [id number] mechanism 4. Hypercoagulable state-related infarct 5. Transient ischemic attack 6. Thrombotic mechanism, large artery disease Comments: STAT Recommendations: inpatient neurology consultation Inpatient stroke evaluation as per Neurology/ Internal Medicine Discussed with ED MD CC History of Present Illness 23 year old female who had a seizure, and is breast feeding with Keppra twice per day. She had a seizure, and was found on a couch sitting upright and was lethargic, and when arrived she was lethargic, then the was seen, and labwork, showed, UDs, and CT head was unremarkable, and one seizure here. She is not back to her [facility]. Boyfriend called from work, and her last known well time was at noon. Diagnostic: CT head is negative. Exam: NIHSS score: 10 1A: Level of Consciousness - Alert; keenly responsive 2 1B: Ask Month and Age - Both Questions Right 2 1C: 'Blink Eyes' & 'Squeeze Hands' - Performs Both Tasks 2 2: Test Horizontal Extraocular Movements - Normal 0 3: Test Visual Ellis - No Visual Loss 0 4: Test Facial Palsy - Normal symmetry 0 5A: Test Left Arm Motor Drift - No Drift for 10 Seconds 0 5B: Test Right Arm Motor Drift - No Drift for 10 Seconds 0 6A: Test Left Leg Motor Drift - No Drift for 5 Seconds 0 6B: Test Right Leg Motor Drift - No Drift for 5 Seconds 4 7: Test Limb Ataxia - No Ataxia 0 8: Test Sensation - Normal; No sensory loss 0 9: Test Language/Aphasia - Normal; No aphasia 0 10: Test Dysarthria - Normal 0 11: Test Extinction/Inattention - No abnormality 0 Medical Decision Making: - Extensive number of diagnosis or management options are considered above. - Extensive amount of complex data reviewed. - High risk of complication and/or morbidity or mortality are associated with differential diagnostic considerations above. - There may be Uncertain outcome and increased probability of prolonged functional impairment or high probability of severe prolonged functional impairment associated with some of these differential diagnosis. Medical Data Reviewed: 1.Data reviewed include clinical labs, radiology, Medical Tests; 2.Tests results discussed w/performing or interpreting physician; 3.Obtaining/reviewing old medical records; 4.Obtaining case history from another source; 5.Independent review of image, tracing or specimen. Patient was informed the Neurology Consult would happen via telehealth (remote video) and consented to receiving care in this manner. - Related Data Home Medications Medication Instructions Recorded Confirmed Last Taken Valacyclovir HCl [Valtrex] 1,000 mg PO QDAY 03/23/16 03/23/16 03/22/16 Valacyclovir HCl [valACYclovir] 1 tab PO QDAY 03/23/16 03/23/16 03/22/16 Previous Rx's Medication Instructions Recorded Last Taken Type levETIRAcetam [Keppra TAB] 250 mg PO BID #60 tablet 08/31/17 Unknown Rx Docusate Sodium [Colace] 100 mg PO BID #60 capsule 01/27/18 Unknown Rx Ferrous Sulfate [Iron 325 MG] 325 mg PO BID #60 tablet 01/27/18 Unknown Rx Ferrous Sulfate [Feosol 325 MG tab] 325 mg PO BID #60 tablet 03/04/18 Unknown Rx Vit-Fe Fumar-FA [ 1 tab PO QDAY #30 tablet 03/04/18 Unknown Rx Vitamin] levETIRAcetam [Keppra] 500 mg PO BID #60 tablet 03/04/18 Unknown Rx levETIRAcetam [Keppra] 500 mg PO BID #60 tablet 07/16/18 Unknown Rx Allergies Allergy/AdvReac Type Severity Reaction Status Date / Time No Known Allergies Allergy Verified 03/23/16 04:46 ED Review of Systems ROS: Stated complaint: UNRESPONSIVE Other details as noted in HPI ED Past Medical Hx - Past Medical History Previous Medical History?: Yes Hx Hypertension: No Hx Congestive Heart Failure: No Hx Diabetes: No Hx Deep Vein Thrombosis: No Hx Renal Disease: No Hx Sickle Cell Disease: No Hx Seizures: Yes Hx Asthma: No Hx COPD: No Hx HIV: No Additional medical history: Vaginal delivery x 1, panic attack - Surgical History Past Surgical History?: Yes Additional Surgical History: 08-20-2014 - Social History Smoking Status: Unknown if ever smoked - Medications Home Medications: Home Medications Medication Instructions Recorded Confirmed Last Taken Type Valacyclovir HCl [Valtrex] 1,000 mg PO QDAY 03/23/16 03/23/16 03/22/16 History Valacyclovir HCl [valACYclovir] 1 tab PO QDAY 03/23/16 03/23/16 03/22/16 History levETIRAcetam [Keppra TAB] 250 mg PO BID #60 tablet 08/31/17 Unknown Rx Docusate Sodium [Colace] 100 mg PO BID #60 capsule 01/27/18 Unknown Rx Ferrous Sulfate [Iron 325 MG] 325 mg PO BID #60 tablet 01/27/18 Unknown Rx Ferrous Sulfate [Feosol 325 MG tab] 325 mg PO BID #60 tablet 03/04/18 Unknown Rx Vit-Fe Fumar-FA [ 1 tab PO QDAY #30 tablet 03/04/18 Unknown Rx Vitamin] levETIRAcetam [Keppra] 500 mg PO BID #60 tablet 03/04/18 Unknown Rx levETIRAcetam [Keppra] 500 mg PO BID #60 tablet 07/16/18 Unknown Rx ED Physical Exam - General Limitations: Altered Mental Status ED Course Vital Signs 10/25/18 10/25/18 10/25/18 20:51 20:55 23:08 Temperature 99.6 F Pulse Rate 82 102 H 59 L Respiratory 19 14 Rate Blood Pressure 118/80 Blood Pressure 122/86 100/51 [Left] O2 Sat by Pulse 100 100 Oximetry 10/25/18 10/26/18 23:11 00:48 Temperature Pulse Rate 53 L Respiratory 15 14 Rate Blood Pressure Blood Pressure 106/75 [Left] O2 Sat by Pulse 98 100 Oximetry ED Medical Decision Making - Lab Data Result diagrams: 10/25/18 21:01 10/25/18 21:01 Critical care attestation.: If time is entered above; I have spent that time in minutes in the direct care of this critically ill patient, excluding procedure time. ED Disposition Condition: Stable Referrals: PRIMARY CARE, [Primary Care Provider] - 3-5 Days
--- NOTE | 2018-10-26 03:26 | Cat Scan Report ---
PROCEDURE: CT ANGIO NECK HISTORY: post seizure, hx of sz FINDINGS: Contrast-enhanced CT angiography of the neck was performed following the intravenous admini stration of iodinated contrast. The pulmonary apices appear clear. The examination is very limited by poor bolus timing. Contrast is primarily in the veins rather than in the arterial system. The right and left common carotid internal carotid external carotid and vertebral arteries appear wid tex patent. No hemodynamically significant stenosis is seen in the cervical arterial vasculature. No fracture is seen in the cervical spine. There is a normal epiglottis. The larynx is within normal limits. IMPRESSION: Limited by suboptimal bolus timing The cervical arterial vasculature appears widely patent This document is electronically signed by Ish Ervin MD., October 26 2018 04:24:48 AM ET
--- NOTE | 2018-10-26 04:24 | Cat Scan Report ---
PROCEDURE: CT ANGIO HEAD TECHNIQUE: Computerized tomographic angiography of the head was performed without the IV injection o f iodinated nonionic contrast including image processing. The image data was postprocessed using 2-d imensional multiplanar reformatted (MPR) and 3-dimensional (MIP and/or volume rendered) techniques. HISTORY: post seizures, hx of sz COMPARISONS: 10/25/[address] FINDINGS: The anterior and posterior communicating arteries are normal in caliber. Well opacified anterior and middle cerebral arteries. Branch vessels within the anterior and middle cerebral arterial distribut ion are well opacified and normal in caliber. Normal caliber basilar artery. Posterior cerebral arteries and their major branches are well opacifi ed and normal in caliber. IMPRESSION: No intracranial stenosis/large vessel occlusion.The [place] is intact. This document is electronically signed by Tim Mariano MD., October 26 2018 05:22:07 AM ET
[2018-10-26] MEDS ORDERED: ZOFRAN IV PRN (04:32)
[2018-10-26] MEDS ORDERED: SODIUM CHLORIDE FLUSH SYRINGE 10 ML IV PRN (04:32)
[2018-10-26] MEDS ORDERED: TYLENOL PO PRN (04:32)
--- NOTE | 2018-10-26 04:33 | History and Physical Report ---
History of Present Illness Date of examination: 10/25/18 History of present illness: 23-year-old lady with a history of panic attacks, seizurecomes to the emergency room because she had a seizure. She had another seizure in the emergency room, loaded with Keppra and given IV Ativan, she is now sedated. She is status post recent delivery of baby. Review of system unable to obtain PAST MEDICAL HISTORY: Panic attacks, seizure PAST SURGICAL HISTORY: None SOCIAL HISTORY: Unknown FAMILY HISTORY: Unknown Medications and Allergies Allergies Allergy/AdvReac Type Severity Reaction Status Date / Time No Known Allergies Allergy Verified 03/23/16 04:46 Home Medications Medication Instructions Recorded Confirmed Last Taken Type Valacyclovir HCl [Valtrex] 1,000 mg PO QDAY 03/23/16 03/23/16 03/22/16 History Valacyclovir HCl [valACYclovir] 1 tab PO QDAY 03/23/16 03/23/16 03/22/16 History levETIRAcetam [Keppra TAB] 250 mg PO BID #60 tablet 08/31/17 Unknown Rx Docusate Sodium [Colace] 100 mg PO BID #60 capsule 01/27/18 Unknown Rx Ferrous Sulfate [Iron 325 MG] 325 mg PO BID #60 tablet 01/27/18 Unknown Rx Ferrous Sulfate [Feosol 325 MG tab] 325 mg PO BID #60 tablet 03/04/18 Unknown Rx Vit-Fe Fumar-FA [ 1 tab PO QDAY #30 tablet 03/04/18 Unknown Rx Vitamin] levETIRAcetam [Keppra] 500 mg PO BID #60 tablet 03/04/18 Unknown Rx levETIRAcetam [Keppra] 500 mg PO BID #60 tablet 07/16/18 Unknown Rx Exam - Physical Exam Narrative exam: Gen. appearance: Patient lying in bed, no apparent distress HEENT: Normocephalic, atraumatic, pupils equally round and reactive to light, unable to do extraocular movement, and no sclericterus No JVD or thyromegaly or nodule,neck supple, no carotid bruit ,mucous membranes moist, no exudate or erythema Heart: S1, S2, regular rate and rhythm Lungs: Clear to auscultation bilaterally, breathing comfortable Abdomen: Positive bowel sounds, nontender, nondistended, no organomegaly Extremity: No edema, cyanosis, clubbing Skin: No rash, nodules, warm, dry Neuro: sedated - Constitutional Vitals: Temp Pulse Resp BP Pulse Ox 99.6 F 74 13 106/45 100 10/25/18 20:55 10/26/18 04:10 10/26/18 04:10 10/26/18 04:10 10/26/18 04:10 Results - Labs CBC & Chem 7: 10/26/18 04:40 10/26/18 04:40 Labs: Abnormal lab results 10/25/18 10/25/18 10/25/18 Range/Units 21:01 21:01 21:01 RBC 5.44 H (3.65-5.03) M/mm3 Hgb 9.9 L (10.1-14.3) gm/dl MCV 62 L (79-97) fl MCH 18 L (28-32) pg RDW 21.3 H (13.2-15.2) % Plt Count 540 H (140-440) K/mm3 VBG pH 7.428 H (7.320-7.420) Creatinine 0.5 L (0.7-1.2) mg/dL - Imaging and Cardiology CT Scan - head: report reviewed Assessment and Plan CTA head and neck reviewed Assessment seizure, acute on chronic Panic attacks Plan admit to medicine Iv ativan as needed, continue keppra consult neurology, DVT prophylaxis MRI per teleneurology, start IV fluid Addendum Hemoglobin dropped, hold Lovenox for now and monitor hemoglobin
[2018-10-26] MEDS ORDERED: ATIVAN IV PRN (04:34)
[2018-10-26 05:13] LABS: BUN/Creatinine Ratio 18; Blood Urea Nitrogen 7 mg/dL (7-17); Calcium 8.9 mg/dL (8.4-10.2); Hemolysis Index 0
[2018-10-26 05:20] LABS: Basophils # (Auto) 0.1 K/mm3 (0.0-0.1); Basophils % (Auto) 0.9 % (0.0-1.8); Eosinophils # (Auto) 0.2 K/mm3 (0.0-0.4); Eosinophils % (Auto) 2.7 % (0.0-4.3); Lymphocytes # (Auto) 2.5 K/mm3 (1.2-5.4); Lymphocytes % (Auto) 38.7 % (13.4-35.0); Monocytes # (Auto) 0.4 K/mm3 (0.0-0.8); Monocytes % (Auto) 6.6 % (0.0-7.3)
[2018-10-26 05:22] LABS: Hematocrit 27.9 % (30.3-42.9); Hemoglobin 8.3 gm/dl (10.1-14.3); Mean Corpuscular Volume 62 fl (79-97); Red Blood Count 4.49 M/mm3 (3.65-5.03)
[2018-10-26 05:23] LABS: Mean Corpuscular HGB Conc 30 % (30-34); Platelet Count 437 K/mm3 (140-440); Red Cell Distribution Width 21.2 % (13.2-15.2)
[2018-10-26] MEDS: NACL 0.9% 1000 ML 1,000 ML IV SCH ×3 (05:40→22:20)
[2018-10-26] MEDS ORDERED: KEPPRA 1,000 MG/NS 0.75% 100ML 1,000 MG/100 ML BAG IV ONE (10:00)
[2018-10-26] MEDS ORDERED: LOVENOX SUB-Q SCH (10:00)
[2018-10-26 10:29] LABS: Basophils # (Auto) 0.1 K/mm3 (0.0-0.1); Basophils % (Auto) 0.8 % (0.0-1.8); Eosinophils # (Auto) 0.1 K/mm3 (0.0-0.4); Eosinophils % (Auto) 1.8 % (0.0-4.3); Lymphocytes # (Auto) 1.7 K/mm3 (1.2-5.4); Lymphocytes % (Auto) 25.9 % (13.4-35.0); Mean Corpuscular HGB Conc 29 % (30-34); Monocytes # (Auto) 0.3 K/mm3 (0.0-0.8); Monocytes % (Auto) 5.4 % (0.0-7.3); Platelet Count 442 K/mm3 (140-440)
[2018-10-26 10:32] LABS: Hemoglobin 8.9 gm/dl (10.1-14.3); Mean Corpuscular Volume 62 fl (79-97); Red Cell Distribution Width 20.9 % (13.2-15.2)
[2018-10-26] MEDS ORDERED: KEPPRA 1,000 MG in NACL 0.9% 100 ML IV NR (12:00)
[2018-10-26] MEDS: SODIUM CHLORIDE FLUSH SYRINGE 10 ML IV SCH ×2 (12:52→22:21)
--- NOTE | 2018-10-26 16:19 | Progress Note ---
Subjective Date of service: 10/26/18 Interval history: new onset of seizures theCT and CTA are normal recommend anticonvulsants plan EEG and MRI will follow Objective - Vital Sign Vital Signs - 12hr 10/26/18 10/26/18 10/26/18 04:20 04:30 04:41 Temperature Pulse Rate 54 L 47 L 51 L Respiratory 13 13 17 Rate Blood Pressure 92/47 81/39 81/39 Blood Pressure [Left] O2 Sat by Pulse 100 100 100 Oximetry 10/26/18 10/26/18 10/26/18 04:51 05:00 05:11 Temperature Pulse Rate 46 L 45 L 45 L Respiratory 14 14 13 Rate Blood Pressure 81/39 94/53 94/53 Blood Pressure 106/94 [Left] O2 Sat by Pulse 100 100 100 Oximetry 10/26/18 10/26/18 10/26/18 05:20 06:02 12:49 Temperature 98.4 F 98.5 F Pulse Rate 46 L 61 64 Respiratory 13 16 16 Rate Blood Pressure 94/53 104/80 105/76 Blood Pressure [Left] O2 Sat by Pulse 100 100 100 Oximetry - Laboratory Findings CBC and BMP: 10/26/18 09:47 10/26/18 04:40 Abnormal Lab Findings: Abnormal Labs 10/25/18 10/25/18 10/25/18 21:01 21:01 21:01 RBC 5.44 H Hgb 9.9 L Hct MCV 62 L MCH 18 L MCHC RDW 21.3 H Plt Count 540 H Lymph % (Auto) VBG pH 7.428 H Creatinine 0.5 L 10/26/18 10/26/18 10/26/18 04:40 04:40 09:47 RBC Hgb 8.3 L 8.9 L Hct 27.9 L MCV 62 L 62 L MCH 19 L 18 L MCHC 29 L RDW 21.2 H 20.9 H Plt Count 442 H Lymph % (Auto) 38.7 H VBG pH Creatinine 0.4 L
--- NOTE | 2018-10-26 19:44 | Event Note ---
Date: 10/26/18 The patient today for a seizure disorder and panic attack. Patient has a history of seizure. Referred labs and management plan. We'll continue the same. Workup for anemia.
[2018-10-26] MEDS ORDERED: PRENATAL VITAMIN PO SCH (20:00)
[2018-10-26] MEDS ORDERED: VALACYCLOVIR HCL PO SCH (20:00)
[2018-10-26 21:04] LABS: Iron 34 ug/dL (37-170); Total Iron Binding Capacity 433 mcg/dL (250-450)
[2018-10-26] MEDS: KEPPRA 1,000 MG in D5W 100 ML IV SCH (22:19)
[2018-10-26] MEDS: PRENATAL VITAMIN PO SCH (22:19)
[2018-10-26] MEDS: FEOSOL PO SCH (22:19)
[2018-10-26] MEDS: COLACE PO SCH (22:19)
[2018-10-27] MEDS: NACL 0.9% 1000 ML 1,000 ML IV SCH (05:55)
--- NOTE | 2018-10-27 08:18 | Progress Note ---
Subjective Date of service: 10/27/18 Interval history: resting but easily arousable reports to me prior hx of seizures plan EEG and MRI perhaps cross hx from family will be useful plan continue anticonvulsants Objective - Vital Sign Vital Signs - 12hr 10/26/18 10/26/18 10/26/18 20:19 23:14 23:25 Temperature 98.8 F Pulse Rate 68 Respiratory 18 17 Rate Blood Pressure 105/64 O2 Sat by Pulse 100 100 100 Oximetry 10/27/18 05:30 Temperature 98.4 F Pulse Rate 87 Respiratory 18 Rate Blood Pressure 99/60 O2 Sat by Pulse 99 Oximetry - Laboratory Findings CBC and BMP: 10/26/18 09:47 10/26/18 04:40 Abnormal Lab Findings: Abnormal Labs 10/25/18 10/25/18 10/25/18 21:01 21:01 21:01 RBC 5.44 H Hgb 9.9 L Hct MCV 62 L MCH 18 L MCHC RDW 21.3 H Plt Count 540 H Lymph % (Auto) VBG pH 7.428 H Creatinine 0.5 L Iron 10/26/18 10/26/18 10/26/18 04:40 04:40 09:47 RBC Hgb 8.3 L 8.9 L Hct 27.9 L MCV 62 L 62 L MCH 19 L 18 L MCHC 29 L RDW 21.2 H 20.9 H Plt Count 442 H Lymph % (Auto) 38.7 H VBG pH Creatinine 0.4 L Iron 10/26/18 20:31 RBC Hgb Hct MCV MCH MCHC RDW Plt Count Lymph % (Auto) VBG pH Creatinine Iron 34 L
[2018-10-27] MEDS: KEPPRA 1,000 MG in D5W 100 ML IV SCH (09:54)
[2018-10-27] MEDS: PRENATAL VITAMIN PO SCH (09:55)
[2018-10-27] MEDS: FEOSOL PO SCH (09:55)
[2018-10-27] MEDS: COLACE PO SCH (09:55)
[2018-10-27] MEDS: SODIUM CHLORIDE FLUSH SYRINGE 10 ML IV SCH (09:56)
[2018-10-27] MEDS ORDERED: VALTREX PO SCH (10:00)
--- NOTE | 2018-10-27 11:29 | Discharge Summary ---
Providers - Providers Date of Admission: 10/26/18 04:43 Date of discharge: 10/27/18 Attending physician: TERRY RAINEY 10/26/18 04:32 Consult to Physician [CONS] Routine Comment: Consulting Provider: FLAQUITA NARVAEZ Physician Instructions: Reason For Exam: suzan Primary care physician: MASTER CARPENTER Hospitalization Condition: Stable Pertinent studies: CT/CTA head CT neck Hospital course: 23-year-old lady with a history of panic attacks, seizure disorder, status post recent delivery of baby came to the emergency room because she had a seizure. She had another seizure in the emergency room, loaded with Keppra and given IV Ativan, admitted to hospital for further management. No further seizure activity noted following admission. Patient was followed by neurologist and recommended to have outpt followup. She was then discharged home in stable condition. Discharge diagnosis: Breakthrough seizure, Panic attacks Disposition: - TO HOME OR SELFCARE Time spent for discharge: 34 minutes Core Measure Documentation - Palliative Care Palliative Care/ Comfort Measures: Not Applicable - Core Measures Any of the following diagnoses?: none Exam - Physical Exam Narrative exam: Gen. appearance: Patient lying in bed, no apparent distress HEENT: Normocephalic, atraumatic, pupils equally round and reactive to light, unable to do extraocular movement, and no sclericterus No JVD or thyromegaly or nodule,neck supple, no carotid bruit ,mucous membranes moist, no exudate or erythema Heart: S1, S2, regular rate and rhythm Lungs: Clear to auscultation bilaterally, breathing comfortable Abdomen: Positive bowel sounds, nontender, nondistended, no organomegaly Extremity: No edema, cyanosis, clubbing Skin: No rash, nodules, warm, dry Neuro: no focal deficit - Constitutional Vitals: Temp Pulse Resp BP Pulse Ox 98.4 F 87 18 99/60 99 10/27/18 05:30 10/27/18 05:30 10/27/18 05:30 10/27/18 05:30 10/27/18 05:30 Plan Activity: advance as tolerated, no driving until cleared by PCP Weight Bearing Status: Weight Bear as Tolerated Diet: regular Follow up with: PRIMARY CAREMD [Primary Care Provider] - 7 Days FLAQUITA NARVAEZ MD [Staff Physician] - 7 Days Prescriptions: levETIRAcetam [Keppra TAB] 1,000 mg PO BID #60 tab
[2018-10-27 13:05] VITALS: BP 102/62
== END 2018-10-27 13:45 | disposition home or self-care (01) | DRG 776 ==
LOC: ED 20:41 → 3A 10-26 04:43
PROVIDERS: ADMIT Internal Medicine; ATTEND Internal Medicine
DX: O99.355 Diseases of the nervous system complicating the puerperium (principal); O99.345 Other mental disorders complicating the puerperium; G40.909 Epilepsy, unspecified, not intractable, without status epilepticus; F41.0 Panic disorder [episodic paroxysmal anxiety]; Z79.899 Other long term (current) drug therapy
CPT/HCPCS: 36415; 70450; 70496; 70498; 80048; 80307; 81001; 82140; 82550; 82607; 82747; 82805; 82962; 83550; 83735; 85007; 85025; 87116; G0378; J1885; J1953; J2060; J7030; Q9967

== ENCOUNTER 2021-08-13 14:07 | Emergency (ER) | payer SELFPAY ==
[2021-08-13 14:15] VITALS: BP 129/82
--- NOTE | 2021-08-13 15:48 | Emergency Department Report ---
ED General Adult HPI - General Chief complaint: Chest Pain Stated complaint: CHEST PAIN/SHIRA Source: patient Mode of arrival: Ambulatory Limitations: No Limitations - History of Present Illness Initial comments: Patient is a A0 25-year-old -[place] female who is approximately 16 weeks gestation and who has a past medical history of epileptic seizures presents to the ED with complaint of acute onset sore throat, painful right- sided anterior and posterior cervical lymph nodes with anterior chest wall pain for the last 2 days. Patient states that the pain in her throat is worse with swallowing and that the neck pain and chest wall pain are also worse with palpation. Patient states that she has been taking Tylenol as needed for pain with no relief. Patient denies fever, chills, nasal and sinus congestion, shortness of breath, dizziness, headache, syncope, abdominal pain, vaginal bleeding, dysuria, urinary frequency and urgency or cough MD Complaint: Sore throat, swollen painful lymph nodes -: Sudden, days(s) (2) Location: mouth, neck, chest Radiation: non-radiation Severity scale (0 -10): 6 Quality: aching, sharp Consistency: constant Improves with: none Worsens with: none Associated Symptoms: denies other symptoms, chest pain (Chest wall pain). denies: confusion, cough, diaphoresis, fever/chills, headaches, loss of appetite, malaise, nausea/vomiting, rash, seizure, shortness of breath, syncope, weakness Treatments Prior to Arrival: none - Related Data Home Medications Medication Instructions Recorded Confirmed Last Taken Valacyclovir HCl [Valtrex] 1,000 mg PO QDAY 03/23/16 03/23/16 03/22/16 Valacyclovir HCl [valACYclovir] 1 tab PO QDAY 03/23/16 03/23/16 03/22/16 Previous Rx's Medication Instructions Recorded Last Taken Type Docusate Sodium [Colace CAP] 100 mg PO BID #60 capsule 01/27/18 Unknown Rx Ferrous Sulfate [Iron 325 MG] 325 mg PO BID #60 tablet 01/27/18 Unknown Rx Ferrous Sulfate [Feosol 325 MG tab] 325 mg PO BID #60 tablet 03/04/18 Unknown Rx Vit-Fe Fumar-FA [ 1 tab PO QDAY #30 tablet 03/04/18 Unknown Rx Vitamin] levETIRAcetam [Keppra TAB] 1,000 mg PO BID #60 tab 10/27/18 Unknown Rx Acetaminophen [Tylenol] 500 mg PO Q6HR PRN #30 tablet 08/13/21 Unknown Rx Amoxicillin [Trimox CAP] 500 mg PO Q8H #30 capsule 08/13/21 Unknown Rx Allergies Allergy/AdvReac Type Severity Reaction Status Date / Time No Known Allergies Allergy Verified 03/23/16 04:46 ED Review of Systems ROS: Stated complaint: CHEST PAIN/SHIRA Other details as noted in HPI Constitutional: denies: chills, fever Eyes: denies: eye pain, eye discharge, vision change ENT: throat pain, other (Swollen painful lymph nodes). denies: ear pain Respiratory: denies: cough, shortness of breath, wheezing Cardiovascular: chest pain (Anterior chest wall pain). denies: palpitations Endocrine: no symptoms reported Gastrointestinal: denies: abdominal pain, nausea, vomiting, diarrhea Genitourinary: denies: urgency, dysuria, discharge Musculoskeletal: denies: back pain, joint swelling, arthralgia Skin: denies: rash, lesions Neurological: denies: headache, weakness, paresthesias Psychiatric: denies: anxiety, depression Hematological/Lymphatic: denies: easy bleeding, easy bruising ED Past Medical Hx - Past Medical History Hx Hypertension: No Hx Congestive Heart Failure: No Hx Diabetes: No Hx Deep Vein Thrombosis: No Hx Renal Disease: No Hx Sickle Cell Disease: No Hx Seizures: Yes Hx Asthma: No Hx COPD: No Hx HIV: No Additional medical history: Vaginal delivery x 1, panic attack - Surgical History Additional Surgical History: 08-20-2014 - Social History Smoking Status: Never Smoker - Medications Home Medications: Home Medications Medication Instructions Recorded Confirmed Last Taken Type Valacyclovir HCl [Valtrex] 1,000 mg PO QDAY 03/23/16 03/23/16 03/22/16 History Valacyclovir HCl [valACYclovir] 1 tab PO QDAY 03/23/16 03/23/16 03/22/16 History Docusate Sodium [Colace CAP] 100 mg PO BID #60 capsule 01/27/18 Unknown Rx Ferrous Sulfate [Iron 325 MG] 325 mg PO BID #60 tablet 01/27/18 Unknown Rx Ferrous Sulfate [Feosol 325 MG tab] 325 mg PO BID #60 tablet 03/04/18 Unknown Rx Vit-Fe Fumar-FA [ 1 tab PO QDAY #30 tablet 03/04/18 Unknown Rx Vitamin] levETIRAcetam [Keppra TAB] 1,000 mg PO BID #60 tab 10/27/18 Unknown Rx Acetaminophen [Tylenol] 500 mg PO Q6HR PRN #30 tablet 08/13/21 Unknown Rx Amoxicillin [Trimox CAP] 500 mg PO Q8H #30 capsule 08/13/21 Unknown Rx ED Physical Exam - General Limitations: No Limitations General appearance: alert, in no apparent distress - Head Head exam: Present: atraumatic, normocephalic, normal inspection - Eye Eye exam: Present: normal appearance, PERRL, EOMI Pupils: Present: normal accommodation - ENT ENT exam: Present: mucous membranes moist, TM's normal bilaterally, normal external ear exam, other (Mildly erythematous oropharynx and tonsils) - Neck Neck exam: Present: normal inspection, full ROM, lymphadenopathy (Palpable anterior right cervical lymphadenopathy) - Respiratory Respiratory exam: Present: normal lung sounds bilaterally, chest wall tenderness (Palpable reproducible mild anterior chest wall tenderness). Absent: respiratory distress, wheezes, rales, rhonchi, accessory muscle use - Cardiovascular Cardiovascular Exam: Present: regular rate, normal rhythm, normal heart sounds. Absent: systolic murmur, diastolic murmur, rubs, gallop - GI/Abdominal GI/Abdominal exam: Present: soft, normal bowel sounds. Absent: tenderness, guarding, rebound, hyperactive bowel sounds, hypoactive bowel sounds, organomegaly, mass, bruit - Extremities Exam Extremities exam: Present: normal inspection, full ROM, normal capillary refill. Absent: tenderness, pedal edema, joint swelling, calf tenderness, other - Back Exam Back exam: Present: normal inspection, full ROM. Absent: tenderness, CVA tenderness (R), CVA tenderness (L), muscle spasm, paraspinal tenderness, vertebral tenderness - Neurological Exam Neurological exam: Present: alert, oriented X3, CN II-XII intact, normal gait, reflexes normal - Psychiatric Psychiatric exam: Present: normal affect, normal mood - Skin Skin exam: Present: warm, dry, intact, normal color. Absent: rash ED Course Vital Signs 08/13/21 14:12 Temperature 97.8 F Pulse Rate 99 H Respiratory 18 Rate Blood Pressure 129/82 [Right] O2 Sat by Pulse 100 Oximetry ED Medical Decision Making - Medical Decision Making This is a A0 25-year-old -[place] female who is approximately 16 weeks gestation and who has a past medical history of epileptic seizures presents to the ED with complaint of acute onset sore throat, painful right- sided anterior and posterior cervical lymph nodes with anterior chest wall pain for the last 2 days. Patient states that the pain in her throat is worse with swallowing and that the neck pain and chest wall pain are also worse with palpation. Patient states that she has been taking Tylenol as needed for pain with no relief. In the ED, patient is alert and oriented x3 and is not in any distress. Based on the history and physical exam findings, the patient symptoms are likely due to acute pharyngitis resulting in anterior and posterior cervical lymphadenopathy. The chest wall pain is mainly musculoskeletal. Dawna rai was discharged home on medications and advised to follow-up with her primary care physician in 5 to 7 days for reevaluation return to the ED immediately if symptoms get worse. - Differential Diagnosis Pharyngitis; lymphadenopathy; bacterial tonsillitis; costochondritis Critical care attestation.: If time is entered above; I have spent that time in minutes in the direct care of this critically ill patient, excluding procedure time. ED Disposition Clinical Impression: Reactive cervical lymphadenopathy, Acute costochondritis Acute pharyngitis Qualifiers: Pharyngitis/tonsillitis etiology: unspecified etiology Qualified Code(s): J02.9 - Acute pharyngitis, unspecified Disposition: 01 HOME / SELF CARE / HOMELESS Is pt being admited?: No Does the pt Need Aspirin: No Condition: Stable Instructions: Costochondritis, [id number], Pharyngitis, [id number], Lymphadenopathy Additional Instructions: Take medication with food, drink plenty of fluids and follow-up with your primary care physician in 7 to 10 days for reevaluation. Return to the ED immediately if symptoms get worse Prescriptions: Acetaminophen [Tylenol] 500 mg PO Q6HR PRN #30 tablet PRN Reason: Pain , Severe (7-10) Amoxicillin [Trimox CAP] 500 mg PO Q8H #30 capsule Referrals: NEAL CAVAZOS MD [Primary Care Provider] - 3-5 Days Time of Disposition: 15:50 Print Language: MALAY
--- NOTE | 2021-08-14 09:17 | Electrocardiograph Report ---
[facility] Test Date: 2021-08-13 Test Time: 14:28:53 Pat Name: RADHA WILSON Department: Room: Gender: F [employer] Work[employer]: ARON : 1995 Requested By: SAIRA CORREA Order Number: [id number] Reading MD: Jodi Abreu Measurements Intervals [place] Rate: 90 P: 51 [place]: 143 QRS: 32 QRSD: 89 T: 22 QT: 352 QTc: 431 Interpretive Statements Sinus rhythm No previous ECG available for comparison Electronically Signed On 08-14-2021 9:16:53 EDT by Jodi Abreu
== END 2021-08-13 16:05 | disposition home or self-care (01) ==
LOC: ED 14:07
DX: O26.892 Other specified pregnancy related conditions, second trimester (principal); M94.0 Chondrocostal junction syndrome [Tietze]; R59.1 Generalized enlarged lymph nodes; J02.9 Acute pharyngitis, unspecified; Z79.899 Other long term (current) drug therapy; Z3A.16 16 weeks gestation of pregnancy
CPT/HCPCS: 93005; 99282

== ENCOUNTER 2022-01-27 18:40 | Outpatient (CLI) | payer SELFPAY ==
[2022-01-27 22:52] VITALS: BP 115/73
== END 2022-01-27 21:50 | disposition home or self-care (01) ==
LOC: TRG 18:40 → APU 18:46 → TRG 21:50
PROVIDERS: ATTEND Obstetrics & Gynecology Gynecology
DX: Z34.93 Encounter for supervision of normal pregnancy, unspecified, third trimester (principal); Z3A.40 40 weeks gestation of pregnancy
CPT/HCPCS: 59025